=== PATIENT | female | born 1970 | race Caucasian/White ===

== ENCOUNTER 2017-07-10 09:51 | Observation (INO) ==
[2017-07-10 11:04] LABS: BUN/Creatinine Ratio 13 (6-26); Blood Urea Nitrogen 12 mg/dL (6-20); Calcium 8.4 mg/dL (8.6-10.3); Carbon Dioxide 21 mEq/L (23-29); Chloride 110 mEq/L (98-107); Glucose 103 mg/dL (70-105); Osmolality,Calculated 282 (280-300); Sodium 136 mEq/L (136-145); eGFR For African Americans > 60 (> 60); eGFR For Non-African Americans > 60 (> 60)
[2017-07-10 11:22] LABS: Basophils # 0.1 K/mcL (0.0-0.2); Basophils % 0.9 %; Eosinophils # 0.1 K/mcL (0.0-0.6); Eosinophils % 2.3 %; Hematocrit 41.5 % (35.3-44.9); Hemoglobin 13.4 g/dL (11.5-15.4); Immature Granulocytes % 0.3 % (0-4); Immature Platelets 1.3 % (1.1-6.1); Lymphocytes # 1.6 K/mcL (0.6-4.6); Lymphocytes % 28.3 %; Mean Corpuscular HGB Conc 32.3 g/dL (31.6-35.5); Mean Corpuscular Hemoglobin 28.8 pg (28.0-33.3); Mean Corpuscular Volume 89.2 fL (83.0-100.0); Monocytes # 0.4 K/mcL (0.0-1.3); Monocytes % 6.8 %; Neutrophils # 3.5 K/mcL (1.6-8.9); Platelet Count 191 K/mcL (140-400); Red Blood Count 4.65 M/mcL (3.82-4.97); Red Cell Distribution Width 12.8 % (11.5-14.5); Segmented Neutrophils % 61.4 %
[2017-07-10 11:23] LABS: Bilirubin,Urine Negative (Negative); Blood,Urine Negative (Negative); Clarity,Urine Clear (Clear); Color,Urine Yellow (Yellow); Glucose,Urine (UA) Normal (Normal); Ketones,Urine Negative (Negative); Leukocyte Esterase,Urine Trace (Negative); Nitrite,Urine Negative (Negative); PH,Urine 6.5 pH Units (5.0-8.0); Protein,Urine Negative (Neg-Trace); Specific Gravity,Urine 1.007 (1.010-1.025); Urobilinogen,Urine Normal (Normal)
[2017-07-10 11:24] LABS: Bacteria,Urine None Seen per hpf (None-Few); Squamous Epithelial Cell,Urine Many per lpf (None-Few); WBC,Urine 0-3 per hpf (0-3)
[2017-07-10] MEDS ORDERED: Aspirin 81 MG TAB.CHEW PO STA (11:25)
[2017-07-10 11:41] LABS: INR 1.1; Prothrombin Time 11.4 Seconds (9.4-12.1)
[2017-07-10 11:43] LABS: Activated Partial Thrombo Time 24.8 Seconds (26.0-36.0)
--- NOTE | 2017-07-10 14:17 | Emergency Department Note ---
Disposition Clinical Impression: Dizziness, Ataxia, Facial droop Disposition: Admitted As Inpatient Condition: Fair Referrals: Lakesha Huerta MD [Primary Care Provider] - Time of Disposition: 14:51 General Adult HPI - General Chief complaint: ED Dizziness Stated complaint: Fall/dizzy/blurred vision Time Seen by Provider: 07/10/17 10:29 Source: patient, other Mode of arrival: ambulatory Limitations: no limitations Nursing Notes Reviewed: Yes Vital Signs Reviewed: Yes - History of Present Illness HPI Narrative: Patient presents emergency room from home for evaluation of dizziness and ataxia. Patient woke up from sleep of 5:45 in the morning and had difficulty walking on a home and recovered daughter. She felt dizzy and said to go back to bed. She went back to bed and woke up at approximately 9:00 and had difficulty walking across her house to the ER. She got into her yard where she is waiting for her friend pick her up to bring her to the hospital and she felt lightheaded and dizzy and fell over to the side. Denies any other trauma or injuries at this point. Does have a history of blood clots but is currently on a blood thinners. No other symptoms or issues prior to events. Onset (ago): Just [employer] Radiation: non-radiation Pain Severity: mild Pain Scale: 3 Improves with: nothing Worsens with: nothing Associated symptoms: Reports: denies other symptoms Treatments Prior to Arrival: none - Related Data Home Medications Medication Instructions Recorded Confirmed Aspirin 81 mg PO DAILY 12/10/15 07/10/17 Biotin [Marquis Biotin] 10,000 mcg PO DAILY 12/10/15 07/10/17 Calcium Carbonate/Vitamin D3 1 tab PO DAILY 12/10/15 07/10/17 [Calcium 600 + Vit D Softgel] Celecoxib [Celebrex] 200 mg PO DAILY 12/10/15 07/10/17 Cholecalciferol (Vitamin D3) 1,000 unit PO DAILY 12/10/15 07/10/17 [Vitamin D3] Cyanocobalamin (Vitamin B-12) 500 mcg PO DAILY 12/10/15 07/10/17 [Vitamin B-12] Doxepin HCl 10 mg PO TID 12/10/15 07/10/17 Metoprolol [Lopressor] 25 mg PO BID 12/10/15 07/10/17 Multivitamin [Multivitamins] 1 tab PO DAILY 12/10/15 07/10/17 Topiramate [Topamax] 150 mg PO DAILY 12/10/15 07/10/17 clonazePAM [Clonazepam] 1 mg PO TID PRN 12/10/15 07/10/17 lamoTRIgine [Lamotrigine] 200 mg PO BID 12/10/15 07/10/17 Cholecalciferol (Vitamin D3) 50,000 unit PO QWEEK 07/10/17 07/10/17 [Vitamin D] HydrOXYzine 10 mg PO BID PRN 07/10/17 07/10/17 Previous Rx's Medication Instructions Recorded Ondansetron ODT [Zofran ODT] 4 mg SL Q8HR #20 tab.rapdis 07/03/17 Tamsulosin [Flomax] 0.4 mg PO DAILY #14 cap.er.24h 07/03/17 Allergies Allergy/AdvReac Type Severity Reaction Status Date / Time No Known Allergies Allergy Verified 07/10/17 09:59 All systems ED: reviewed and negative except as stated. Review of Systems: As Per HPI Constitutional: Denies: fever, chills, weakness Eyes: Reports: vision change. Denies: eye pain, eye discharge Cardiovascular: Denies: chest pain, palpitations, dyspnea on exertion, orthopnea , edema Respiratory: Denies: dyspnea, wheezes, hemoptysis Gastrointestinal: Denies: abdominal pain, nausea, vomiting, diarrhea Musculoskeletal: Denies: back pain, neck pain Integumentary: Denies: rash Neurological: Reports: abnormal gait, vertigo. Denies: headache, weakness, numbness, paresthesias, confusion Psychiatric: Denies: anxiety Past Medical History - Past Medical History Attestation: Yes The following information was validated with the patient. Source: patient Medical history: Reports: DVT, kidney stones, pulmonary embolus Surgical history: Reports: appendectomy, , cholecystectomy, herniorrhaphy, ureteral stent Psychiatric history: Reports: anxiety, bipolar - Social History Smoking Status: Light tobacco smoker Smokeless Tobacco Status: No Alcohol use: Reports: rarely Drug use: Reports: none Physical Exam - General Limitations: no limitations General appearance: alert, in no apparent distress - Head Head exam: atraumatic, normocephalic, normal inspection - Eye Eye exam: Present: normal appearance, PERRL, EOMI. Absent: scleral icterus, conjunctival injection, nystagmus - ENT ENT exam: normal exam, normal oropharynx, mucous membranes moist - Neck Neck exam: Present: normal inspection, full ROM, trachea midline. Absent: tenderness, meningismus - Chest Chest inspection: Present: normal inspection, symmetric chest wall rise. Absent : tenderness - Respiratory Respiratory exam: Present: normal lung sounds bilaterally - Cardiovascular Cardiovascular exam: Present: regular rate, normal rhythm, normal heart sounds - Abdominal Exam Abdominal exam: Present: soft, Non-Tender, normal bowel sounds. Absent: tenderness, distention, guarding, rebound, rigidity, Dasilva's sign, Rovsing's sign, tenderness at McBurney's Point - Extremities Exam Extremities exam: Present: normal inspection, full ROM, normal capillary refill. Absent: tenderness - Back Exam Back exam: Present: normal inspection - Neurological Exam Neurological exam: Present: alert, oriented X3, CN II-XII intact - Skin Skin exam: Present: warm, dry, intact, normal color Course Course Narrative: Patient seen and examined at the time of arrival to my shift. Patient presented to the emergency room at 0945 hours. I presented to my shift at 1100 hours. Patient was triaged as dizziness along with ataxia. Patient has no specific stroke history. Vital signs reviewed and are stable. Patient is unable to be evaluated prior to my arrival secondary to critically ill patient in the department. On my presentation to the bedside and evaluation of the patient she has what appears to be central vertigo or dizziness at this time. She has no specific lateralizing nystagmus of pupillary exam. Pupils are equal round reactive and ocular muscles are intact. She was describing blurry vision bilaterally but no diplopia. Denies a clear she still feels the room spinning and unsteady presentation. It is not exacerbated or changed by position where she lying a rotating the head. She also has a slight left-sided facial droop. She has a slight ataxia in the left upper extremity with finger to nose testing. Patient otherwise has no other acute neurologic deficits based on my examination. A lengthy discussion was had with her at this time about the process and progress of his symptoms. Patient went to bed at approximately 2 AM this morning. She woke at 5:45 in the morning with these symptoms and had difficulty walking down her hallway. Patient went back to bed. She suffered another several hours. Woke up with the same symptoms. She called her friend and decided to come to the emergency room. She presented here at 0945 hours. Patient was evaluated at 1100 hours by myself. I contacted the neurologist as well as [facility] neurology department immediately on presentation considering the patient was well outside the timeframe for TPA but is a consideration for possible other procedures. Patient has what appears to be cerebellar dysfunction at this point secondary to the dizziness and ataxia. Both the neurologist. Dr. mc and the neurologist at [facility] Dr. camilo and I reviewed the case and they both recommended symptomatic treatment with aspirin MRIs of the head and neck and definitive management. Patient has otherwise been hemodynamically stable. NIH stroke scale is approximately 83 at this time. Patient will be admitted once this is worked up and completed her definitive management. No other concerns or issues noted. Physical exam is otherwise unremarkable except for strokelike symptoms. Lungs are clear heart is regular. Patient understands my concerns and issues and is comfortable with the projected plan at this time. - Reevaluation(s) Reevaluation #1: MRIs are negative for acute signs of ischemic infarct. Patient will be admitted at this time for symptomatic control. Patient needs further evaluation for strokelike symptoms. Meclizine to be given here in the emergency room. Otherwise no other acute pathology noted at this point. Patient is stable and in no apparent distress at this point. Hospice was contacted for admission. Dr. manning and I reviewed the patient's presentation symptoms no other concerns or issues. Patient will be admitted at this time Time: 14:48 Vital Signs Temperature 98.4 F 07/10/17 09:55 Pulse Rate 70 07/10/17 09:55 Respiratory Rate 18 07/10/17 09:55 Blood Pressure 118/82 07/10/17 09:55 O2 Sat by Pulse Oximetry 100 07/10/17 09:55 Temperature 98.4 F 07/10/17 09:55 Pulse Rate 70 07/10/17 09:55 Respiratory Rate 18 07/10/17 09:55 Blood Pressure 118/82 07/10/17 09:55 O2 Sat by Pulse Oximetry 100 07/10/17 09:55 Oxygen Delivery Oxygen Delivery Room Air Medical Decision Making - MDM Narrative Medical decision making narrative: Dizziness, left upper extremity ataxia, left-sided facial droop - Medical Records Medical records reviewed: Yes I reviewed the patient's medical records. - Lab Data Lab results reviewed: Yes I reviewed the patient's lab results. Result diagrams: 07/10/17 10:41 07/10/17 10:41 Lab Results 07/10/17 07/10/17 07/10/17 Range/Units 10:41 10:41 10:41 WBC 5.7 (4.3-11.1) K/mcL RBC 4.65 (3.82-4.97) M/mcL Hgb 13.4 (11.5-15.4) g/dL Hct 41.5 (35.3-44.9) % MCV 89.2 (83.0-100.0) fL MCH 28.8 (28.0-33.3) pg MCHC 32.3 (31.6-35.5) g/dL RDW 12.8 (11.5-14.5) % Plt Count 191 (140-400) K/mcL MPV 9.0 L (9.4-12.4) fL Immature Gran % 0.3 (0-4) % Seg Neutrophils % 61.4 % Lymphocytes % 28.3 % Monocytes % 6.8 % Eosinophils % 2.3 % Basophils % 0.9 % Neutrophils # 3.5 (1.6-8.9) K/mcL Lymphocytes # 1.6 (0.6-4.6) K/mcL Monocytes # 0.4 (0.0-1.3) K/mcL Eosinophils # 0.1 (0.0-0.6) K/mcL Basophils # 0.1 (0.0-0.2) K/mcL Immature Plt Fraction 1.3 (1.1-6.1) % PT (9.4-12.1) Seconds INR APTT (26.0-36.0) Seconds Sodium 136 (136-145) mEq/L Potassium 4.0 (3.5-5.1) mEq/L Chloride 110 H (98-107) mEq/L Carbon Dioxide 21 L (23-29) mEq/L BUN 12 (6-20) mg/dL Creatinine 0.91 (0.60-1.20) mg/dL Est GFR ( Amer) > 60 (> 60) Est GFR (Non-Af Amer) > 60 (> 60) BUN/Creatinine Ratio 13 (6-26) Glucose 103 (70-105) mg/dL Calculated Osmolality 282 (280-300) Calcium 8.4 L (8.6-10.3) mg/dL Troponin I < 0.03 (< 0.04) ng/mL Urine Color (Yellow) Urine Clarity (Clear) Urine pH (5.0-8.0) pH Units Ur Specific [place] (1.010-1.025) Urine Protein (Neg-Trace) mg/dL Urine Glucose (UA) (Normal) mg/dL Urine Ketones (Negative) mg/dL Urine Blood (Negative) Urine Nitrite (Negative) Urine Bilirubin (Negative) Urine Urobilinogen (Normal) mg/dL Ur Leukocyte Esterase (Negative) Urine Microscopic RBC (0-3) per hpf Urine Microscopic WBC (0-3) per hpf Ur Squamous Epith Cells (None-Few) per lpf Urine Bacteria (None-Few) per hpf Ur Culture Indicated? (NO) Urine Test (Negative) 07/10/17 07/10/17 07/10/17 Range/Units 11:00 11:00 11:25 WBC (4.3-11.1) K/mcL RBC (3.82-4.97) M/mcL Hgb (11.5-15.4) g/dL Hct (35.3-44.9) % MCV (83.0-100.0) fL MCH (28.0-33.3) pg MCHC (31.6-35.5) g/dL RDW (11.5-14.5) % Plt Count (140-400) K/mcL MPV (9.4-12.4) fL Immature Gran % (0-4) % Seg Neutrophils % % Lymphocytes % % Monocytes % % Eosinophils % % Basophils % % Neutrophils # (1.6-8.9) K/mcL Lymphocytes # (0.6-4.6) K/mcL Monocytes # (0.0-1.3) K/mcL Eosinophils # (0.0-0.6) K/mcL Basophils # (0.0-0.2) K/mcL Immature Plt Fraction (1.1-6.1) % PT 11.4 (9.4-12.1) Seconds INR 1.1 APTT 24.8 L (26.0-36.0) Seconds Sodium (136-145) mEq/L Potassium (3.5-5.1) mEq/L Chloride (98-107) mEq/L Carbon Dioxide (23-29) mEq/L BUN (6-20) mg/dL Creatinine (0.60-1.20) mg/dL Est GFR ( Amer) (> 60) Est GFR (Non-Af Amer) (> 60) BUN/Creatinine Ratio (6-26) Glucose (70-105) mg/dL Calculated Osmolality (280-300) Calcium (8.6-10.3) mg/dL Troponin I (< 0.04) ng/mL Urine Color Yellow (Yellow) Urine Clarity Clear (Clear) Urine pH 6.5 (5.0-8.0) pH Units Ur Specific [place] 1.007 L (1.010-1.025) Urine Protein Negative (Neg-Trace) mg/dL Urine Glucose (UA) Normal (Normal) mg/dL Urine Ketones Negative (Negative) mg/dL Urine Blood Negative (Negative) Urine Nitrite Negative (Negative) Urine Bilirubin Negative (Negative) Urine Urobilinogen Normal (Normal) mg/dL Ur Leukocyte Esterase Trace H (Negative) Urine Microscopic RBC 3-5 H (0-3) per hpf Urine Microscopic WBC 0-3 (0-3) per hpf Ur Squamous Epith Cells Many H (None-Few) per lpf Urine Bacteria None Seen (None-Few) per hpf Ur Culture Indicated? NO. (NO) Urine Test Negative (Negative) - Radiology Data Radiology results reviewed: Yes I reviewed the patient's radiology results. CT of the head as well as MRI of the head and neck are negative for acute intracranial pathology noted signs of ischemic stroke - EKG Data EKG #1 EKG results narrative: Sinus rhythm. Ventricular 65. VT interval 184. QRS duration of 88. QTC of 411. Enemas appear to be within normal limits. No acute signs of WPW or Brugada syndrome. T-wave inversion noted in lead 3. Critical Care Time Critical Care Time: Yes Total Critical Care Time: 35 Attestation: Critical care performed: Time is exclusive of separately billable procedures. Time includes: direct patient care, patient reassessment, coordination of patient care, interpretation of data (laboratory data, radiology data, and respiratory data), review of patient's medical records, medical consultation and documentation of patient care. Procedures included in critical care time: Procedures excluded from critical care time:
[2017-07-10] MEDS ORDERED: Naloxone 0.4 MG/ML INJ IVP PRN (15:04)
[2017-07-10] MEDS ORDERED: Acetaminophen 325 MG TABLET PO PRN (15:19)
[2017-07-10] MEDS ORDERED: clonazePAM 1 MG TABLET PO PRN (15:27)
--- NOTE | 2017-07-10 15:43 | Internal Med History&Physical ---
<Krissy Loo - Last Filed: 07/10/17 16:03> Date of Encounter: 07/10/17 Time of Encounter: 15:36 Assessment and Plan (1) Vertigo Current visit: Yes Status: Suspected 1 patient awakened this a.m. and began to experience dizziness, she was unable to walk and was unsteady on her feet she follows if she was going to fall down and actually did fall however she did not sustain any injuries. She denies any recent head trauma or illness, CT MRI MRA of head and neck were all negative for any stroke or hemorrhage. neuro consulted per ER physician She did have some slight vertigo nystagmus with head movement which resolved quickly We will give meclizine as needed 2 give gentle IV fluids 3 fall precautions 4 consult ENT-did speak with Dr. Elizondo who will see patient 5 neuro checks (2) Bipolar 1 disorder Current visit: No Status: Chronic Patient has history of bipolar with anxiety presently appears to be stable continue with home medications (3) Hx of deep venous thrombosis Current visit: No Status: Chronic 1 patient does have a history of DVT several years ago post operatively. No recent history [address] on Lovenox subcutaneous DVT prophylaxis Internal Medicine - H&P: HPI Chief complaint: Ataxia dizziness Admitted From: Emergency Dept Plans for Post Hospital Care: Home History of present illness: Ms. Mccormick is a 47 year old female past medical history of DVT kidney stones bipolar disorder. According to the patient she has been in her usual state of health, she was treated for kidney stones several weeks ago and has been doing well. This a.m. she awoke and she felt dizzy and she did not think anything about it and went back to bed. A couple hours later she try to get up again felt dizzy and was having difficulty ambulating felt as if she was going to fall. She had a cup of matilde and began to experience a headache. Again she attempted to ambulate and felt unsteady as if she was going to fall. She called a friend to transport her to the hospital and as she was waiting outside she fell down she denies striking her head or any loss of consciousness. She was brought to the ER for evaluation. In the ER lab work was obtained which was unremarkable CT of head was negative hemorrhage intracranial abnormality MRI MRA head and neck were all negative for any stroke or hemorrhage. She was admitted for further workup and evaluation. Presently patient is alert and appropriate. Neuro exam intact however she was unable to ambulate she is very unsteady on her feet. She did complain of frontal headache which she described as throbbing with associated symptoms of photophobia. She seemed to be stable at this time I did review this case with who agrees with plan Past Med Surg Social Fam HX - Past Medical History Medical history: DVT, kidney stones, pulmonary embolus Psychiatric history: anxiety, bipolar - Past Surgical History Surgical History: appendectomy, , cholecystectomy, herniorrhaphy, ureteral stent - Social History Smoking Status: Light tobacco smoker Smokeless Tobacco Status: No Alcohol use: rarely Drug use: none - Additional Family History Additional family history: reviewed and noncontributory Internal Medicine - H&P: Meds Aspirin 81 mg PO DAILY 12/10/15 [History] Biotin [Marquis Biotin] 10,000 mcg PO DAILY 12/10/15 [History] Calcium Carbonate/Vitamin D3 [Calcium 600 + Vit D Softgel] 1 tab PO DAILY [History] Celecoxib [Celebrex] 200 mg PO DAILY 12/10/15 [History] Cholecalciferol (Vitamin D3) [Vitamin D3] 1,000 unit PO DAILY 12/10/15 [History] Cyanocobalamin (Vitamin B-12) [Vitamin B-12] 500 mcg PO DAILY 12/10/15 [History] Doxepin HCl 10 mg PO TID 12/10/15 [History] Metoprolol [Lopressor] 25 mg PO BID 12/10/15 [History] Multivitamin [Multivitamins] 1 tab PO DAILY 12/10/15 [History] Topiramate [Topamax] 150 mg PO DAILY 12/10/15 [History] clonazePAM [Clonazepam] 1 mg PO TID PRN 12/10/15 [History] lamoTRIgine [Lamotrigine] 200 mg PO BID 12/10/15 [History] Ondansetron ODT [Zofran ODT] 4 mg SL Q8HR #20 tab.rapdis 07/03/17 [Rx] Tamsulosin [Flomax] 0.4 mg PO DAILY #14 cap.er.24h 07/03/17 [Rx] Cholecalciferol (Vitamin D3) [Vitamin D] 50,000 unit PO QWEEK 07/10/17 [History] HydrOXYzine 10 mg PO BID PRN 07/10/17 [History] 3 Allergy/AdvReac Type Severity Reaction Status Date / Time No Known Allergies Allergy Verified 07/10/17 09:59 All Systems PM: A 10-system review of systems was performed and is negative for pertinent findings except as documented above in the HPI. - Constitutional Constitutional: no chills, no fever(s), no night sweats - EENT Eyes: no change in vision, no discharge, no pain, no photophobia Nose, mouth and throat: no dysphagia, no nasal discharge, no neck pain, no sore throat - Cardiovascular Cardiovascular ROS IM: no chest pain, no diaphoresis, no dyspnea, no lightheadedness, no palpitations, no syncope - Respiratory Respiratory: no cough, no dyspnea, no wheezing, no excessive phlegm production - Gastrointestinal Gastrointestinal: no abdominal pain, no diarrhea, no hematemesis, no hematochezia, no melena, no nausea, no vomiting - Genitourinary Genitourinary: no change in urinary stream, no dysuria, no flank pain, no hematuria - Musculoskeletal Musculoskeletal ROS IM: no numbness, no tingling - Neurological Neurological ROS: dizziness, headache(s) - Hematologic/Lymphatic Hematologic/Lymphatic: no easy bruising - Constitutional Vitals: Temp Pulse Resp BP Pulse Ox 98.4 F 67 16 104/75 99 07/10/17 09:55 07/10/17 14:25 07/10/17 14:25 07/10/17 14:25 07/10/17 14:25 General appearance: Present: A&O X 3 - Head Head exam: Present: atraumatic, normocephalic - Eye Eye exam: Present: PERRL, conjuntiva pink, sclera anicteric Pupils: Present: PERRL - Neck Neck exam general surgery: Present: supple, trachea midline. Absent: lymphadenopathy - Respiratory Respiratory exam: Present: CTAB. Absent: accessory muscle use, rales, rhonchi, wheezes - Cardiovascular Cardiovascular exam: Present: RRR, +S1, +S2. Absent: diastolic murmur, gallop, rubs, systolic murmur - GI/Abdominal GI/Abdominal exam: Present: normal bowel sounds, soft, no peritoneal signs. Absent: distended, tenderness - Extremities Exam Extremities exam: Present: warm, radial pulses palpable and symmetrical. Absent : calf tenderness, cyanotic, pedal edema - Neurological Exam Neurological exam: Present: CN II-XII intact, oriented X3, no focal deficits. Absent: pronater drift, facial droop, speech deficit - Expanded Neurological Exam Patient oriented to: Present: person, place, time Cranial Nerves: EOM's intact PM: Normal, nystagmus PM: Abnormal Left, Abnormal Right (slight), tongue deviation PM: Normal Cerebellar function: finger to nose: Normal, heel to bird: Normal, Romberg: Normal Neuro motor strength exam: LUE: 5, RUE: 5, LLE: 5, RLE: 5 Coma Scale Eye Opening: Spontaneous Coma Scale Motor Response: Obeys Commands Coma Scale Verbal Response: Oriented Coma Scale Total: 15 - Skin Skin exam: Present: dry, intact Internal Med - H&P Results - Labs CBC & Chem 7: 07/10/17 10:41 07/10/17 10:41 - EKG Data EKG shows normal: sinus rhythm - Diagnostic Studies Other Images Additional comments: Brain MRI 07/10/17 11:14 IMPRESSION: No acute abnormality. D/ / Hugh Campos MD / Hugh Campos MD Interpreting Provider: Hugh Cmapos MD Head CT 07/10/17 11:14 IMPRESSION: No acute intracranial abnormality. Unchanged chronic partial opacification of the right mastoid air cells. No middle ear effusion or osseous destruction. D/ / Dario Caceres / Dario Caceres Interpreting Provider: Dario Caceres Neck MRA 07/10/17 11:14 IMPRESSION: No flow-limiting stenosis of the cervical, carotid or vertebral arteries. No intracranial flow-limiting stenosis or aneurysm. D/ / 07/10/2017 14:21:35 Jared Banda MD / kumar Interpreting Provider: Jared Banda MD Head MRA 07/10/17 11:18 IMPRESSION: No flow-limiting stenosis of the cervical, carotid or vertebral arteries. No intracranial flow-limiting stenosis or aneurysm. D/ / 07/10/2017 14:21:35 Jared Banda MD / kumar Interpreting Provider: Jared Banda MD <Devon Steward T - Last Filed: 07/10/17 16:35> Date of Encounter: 07/10/17 Internal Medicine - H&P: HPI History of present illness: Ms. Mccormick is a 47 year old female All Systems PM: A 10-system review of systems was performed and is negative for pertinent findings except as documented above in the HPI. - Constitutional Vitals: Temp Pulse Resp BP Pulse Ox 97.7 F 59 14 106/68 98 07/10/17 16:20 07/10/17 16:20 07/10/17 16:20 07/10/17 16:20 07/10/17 16:20 Internal Med - H&P Results - Labs CBC & Chem 7: 07/10/17 10:41 07/10/17 10:41 - Attending Attestation Seen and reviewed Severe vertigo, unable to stand or sit up Stroke work up negative Agree with ENT eval and meclizine, no evidence of labyrynthitis or vestibular neuritis Resume home meds Agree with plan as in CATHERINE Loo' documentation
[2017-07-10] MEDS: 0.9 % Sodium Chloride 1,000 ML IVC SCH (16:46)
--- NOTE | 2017-07-10 17:36 | ENT - Consult Note ---
<Shannan Dean - Last Filed: 07/11/17 16:15> Date of Encounter: 07/11/17 Time of Encounter: 17:34 Assessment and Plan (1) Dizziness Current Visit: Yes Status: Acute Seen and examined at bedside today. Flora-Hallpike completed and negative at this time. Patient does not report symptoms Consistent with true vertigo. She does report a history of migraines and tension headaches, and states that she feels that her symptoms are similar to those experienced with tension headaches she has had in the past. Her blood pressures have also been trending in the low 100s systolically, and she has been experiencing episodes of tachycardia. Patient reports normal blood pressures at home with systolic usually running in the 120s. Would recommend evaluation for orthostatic blood pressure. No further ENT evaluation is warranted at this time. ENT is signing off. History of Present Illness Consult date: 07/10/17 Reason for ENT Consult: vertigo History of present illness: Patient is a 47-year-old female that presented to the ER today post fall at her home. She reports her symptoms of dizziness and lightheadedness started this morning when she awoke and was rising out of bed. She described her symptom of "dizziness" as lightheadedness and denies a sensation of spinning. She states her symptoms subsided for a short amount of time and returned when she was doing laundry after she stood up quickly. At that time she again became lightheaded and her vision started to become dark and blurry. She stated that she fell when she attempted to ambulate. She states she had began getting a headache earlier in the day with associated blurred vision that she describes as "out of focus," photophobia, and nausea. She denies resolution of her symptoms with focus to one object. Patient denies symptom exacerbation with head movement in either direction, denies any recent illness, or head trauma. Patient denies any history of vertigo. She does report history of migraines and tension headaches. Past Med Surg Social Fam HX - Past Medical History Medical history: DVT, kidney stones, pulmonary embolus Psychiatric history: anxiety, bipolar - Past Surgical History Surgical History: appendectomy, , cholecystectomy, herniorrhaphy, ureteral stent - Social History Smoking Status: Light tobacco smoker Smokeless Tobacco Status: No Alcohol use: rarely Drug use: none Medications and Allergies Aspirin 81 mg PO DAILY 12/10/15 [History] Biotin [Marquis Biotin] 10,000 mcg PO DAILY 12/10/15 [History] Calcium Carbonate/Vitamin D3 [Calcium 600 + Vit D Softgel] 1 tab PO DAILY [History] Celecoxib [Celebrex] 200 mg PO DAILY 12/10/15 [History] Cholecalciferol (Vitamin D3) [Vitamin D3] 1,000 unit PO DAILY 12/10/15 [History] Cyanocobalamin (Vitamin B-12) [Vitamin B-12] 500 mcg PO DAILY 12/10/15 [History] Doxepin HCl 10 mg PO TID 12/10/15 [History] Metoprolol [Lopressor] 25 mg PO BID 12/10/15 [History] Multivitamin [Multivitamins] 1 tab PO DAILY 12/10/15 [History] Topiramate [Topamax] 150 mg PO DAILY 12/10/15 [History] clonazePAM [Clonazepam] 1 mg PO TID PRN 12/10/15 [History] lamoTRIgine [Lamotrigine] 200 mg PO BID 12/10/15 [History] Ondansetron ODT [Zofran ODT] 4 mg SL Q8HR #20 tab.rapdis 07/03/17 [Rx] Tamsulosin [Flomax] 0.4 mg PO DAILY #14 cap.er.24h 07/03/17 [Rx] Cholecalciferol (Vitamin D3) [Vitamin D] 50,000 unit PO QWEEK 07/10/17 [History] HydrOXYzine 10 mg PO BID PRN 07/10/17 [History] 3 Allergy/AdvReac Type Severity Reaction Status Date / Time No Known Allergies Allergy Verified 07/10/17 09:59 ENT - ROS - Constitutional Constitutional ROS: as per HPI, headache(s) - EENT Nose, mouth and throat: dizziness, headache(s) ENT Exam Initial Vital Signs Temp Pulse Resp BP Pulse Ox 98.4 F 70 18 118/82 100 07/10/17 09:55 07/10/17 09:55 07/10/17 09:55 07/10/17 09:55 07/10/17 09:55 - General physical appearance well developed, well nourished, no distress - Eyes PERRL, normal ocular movement - ENT normal pinna, normal nares, normal mucosa, no hearing loss, no congestion, CN 2- 12 grossly intact, Other (Normal TM's bilaterally. Teeth in good repair tonsils 1+. Normal oral mucosa and oropharynx. Septum grossly midline.) - Neck no masses, trachea midline, no lymphadectomy. negative: deviated trachea, diffuse goiter, limited ROM - Respiratory normal expansion, normal respiratory effort - Neurologic CN 2-12 grossly intact, other (Misti-Hallpike negative) Exam Initial Vital Signs Temp Pulse Resp BP Pulse Ox 98.4 F 70 18 118/82 100 07/10/17 09:55 07/10/17 09:55 07/10/17 09:55 07/10/17 09:55 07/10/17 09:55 Results - Labs 07/11/17 06:35 07/11/17 06:35 Abnormal lab results MPV 9.0 fL (9.4-12.4) L 07/10/17 10:41 APTT 24.8 Seconds (26.0-36.0) L 07/10/17 11:25 Chloride 110 mEq/L (98-107) H 07/10/17 10:41 Carbon Dioxide 21 mEq/L (23-29) L 07/10/17 10:41 Calcium 8.4 mg/dL (8.6-10.3) L 07/10/17 10:41 Ur Specific [place] 1.007 (1.010-1.025) L 07/10/17 11:00 Ur Leukocyte Esterase Trace (Negative) H 07/10/17 11:00 Urine Microscopic RBC 3-5 per hpf (0-3) H 07/10/17 11:00 Ur Squamous Epith Cells Many per lpf (None-Few) H 07/10/17 11:00 All other labs normal. Consult Discharge Plan - Plan Referrals: Lakesha Huerta MD [Primary Care Provider] - <Whitney Ricketts - Last Filed: 07/11/17 16:29> Date of Encounter: 07/11/17 ENT Exam Initial Vital Signs Temp Pulse Resp BP Pulse Ox 98.4 F 70 18 118/82 100 07/10/17 09:55 07/10/17 09:55 07/10/17 09:55 07/10/17 09:55 07/10/17 09:55 Exam Initial Vital Signs Temp Pulse Resp BP Pulse Ox 98.4 F 70 18 118/82 100 07/10/17 09:55 07/10/17 09:55 07/10/17 09:55 07/10/17 09:55 07/10/17 09:55 Results - Labs 07/11/17 06:35 07/11/17 06:35 Abnormal lab results MPV 9.1 fL (9.4-12.4) L 07/11/17 06:35 APTT 24.8 Seconds (26.0-36.0) L 07/10/17 11:25 Chloride 116 mEq/L (98-107) H 07/11/17 06:35 Carbon Dioxide 20 mEq/L (23-29) L 07/11/17 06:35 POC Glucose 235 (58-89) H 07/11/17 09:21 Calcium 7.9 mg/dL (8.6-10.3) L 07/11/17 06:35 Ur Specific [place] 1.007 (1.010-1.025) L 07/10/17 11:00 Ur Leukocyte Esterase Trace (Negative) H 07/10/17 11:00 Urine Microscopic RBC 3-5 per hpf (0-3) H 07/10/17 11:00 Ur Squamous Epith Cells Many per lpf (None-Few) H 07/10/17 11:00 Diabetes panel 07/11/17 Range/Units 06:35 Sodium 140 (136-145) mEq/L Potassium 3.9 (3.5-5.1) mEq/L Chloride 116 H (98-107) mEq/L Carbon Dioxide 20 L (23-29) mEq/L BUN 11 (6-20) mg/dL Creatinine 0.71 (0.60-1.20) mg/dL Glucose 91 (70-105) mg/dL Calcium 7.9 L (8.6-10.3) mg/dL Calcium panel 07/11/17 Range/Units 06:35 Calcium 7.9 L (8.6-10.3) mg/dL Pituitary panel 07/11/17 Range/Units 06:35 Sodium 140 (136-145) mEq/L Potassium 3.9 (3.5-5.1) mEq/L Chloride 116 H (98-107) mEq/L Carbon Dioxide 20 L (23-29) mEq/L BUN 11 (6-20) mg/dL Creatinine 0.71 (0.60-1.20) mg/dL Glucose 91 (70-105) mg/dL Calcium 7.9 L (8.6-10.3) mg/dL Adrenal panel 07/11/17 Range/Units 06:35 Sodium 140 (136-145) mEq/L Potassium 3.9 (3.5-5.1) mEq/L Chloride 116 H (98-107) mEq/L Carbon Dioxide 20 L (23-29) mEq/L BUN 11 (6-20) mg/dL Creatinine 0.71 (0.60-1.20) mg/dL Glucose 91 (70-105) mg/dL Calcium 7.9 L (8.6-10.3) mg/dL All other labs normal. - Attending Attestation Patient was seen and examined at the bedside with the GENERATOR TECHNICIAN. Patient does not exhibit true vertigo by history. Patient complains of lighheadedness and pre- syncope. Patient with associated drop in bp compared to her baseline as well as episodes of tachycardia here in the hospital. Recommend optimization of her fluid status with gentle rehydration and further monitoring of blood pressure possible orthostatics if symptoms continue. Patient does not appear to have symptoms of vestibular orgin. ENT to sign off.
[2017-07-10] MEDS: lamoTRIgine 100 MG TABLET PO SCH (20:29)
[2017-07-10] MEDS: (Doxepin Hcl [Doxepin Hcl] 10 MG) PO SCH (20:30)
[2017-07-10] MEDS: Topiramate 100 MG TABLET PO SCH (20:42)
[2017-07-11 06:53] LABS: Basophils % 0.8 %; Eosinophils # 0.1 K/mcL (0.0-0.6); Eosinophils % 1.9 %; Hematocrit 38.3 % (35.3-44.9); Hemoglobin 12.6 g/dL (11.5-15.4); Immature Granulocytes % 0.2 % (0-4); Lymphocytes # 1.7 K/mcL (0.6-4.6); Lymphocytes % 33.6 %; Mean Corpuscular HGB Conc 32.9 g/dL (31.6-35.5); Mean Corpuscular Hemoglobin 28.7 pg (28.0-33.3); Mean Corpuscular Volume 87.2 fL (83.0-100.0); Mean Platelet Volume 9.1 fL (9.4-12.4); Monocytes # 0.4 K/mcL (0.0-1.3); Monocytes % 7.8 %; Neutrophils # 2.9 K/mcL (1.6-8.9); Platelet Count 150 K/mcL (140-400); Red Blood Count 4.39 M/mcL (3.82-4.97); Red Cell Distribution Width 12.8 % (11.5-14.5); Segmented Neutrophils % 55.7 %
[2017-07-11 07:19] LABS: BUN/Creatinine Ratio 15 (6-26); Blood Urea Nitrogen 11 mg/dL (6-20); Calcium 7.9 mg/dL (8.6-10.3); Carbon Dioxide 20 mEq/L (23-29); Chloride 116 mEq/L (98-107); Glucose 91 mg/dL (70-105); Magnesium 1.8 mg/dL (1.6-2.6); Osmolality,Calculated 289 (280-300); Potassium 3.9 mEq/L (3.5-5.1); Sodium 140 mEq/L (136-145); eGFR For African Americans > 60 (> 60); eGFR For Non-African Americans > 60 (> 60)
[2017-07-11] MEDS: (Doxepin Hcl [Doxepin Hcl] 10 MG) PO SCH ×3 (07:35→21:03)
[2017-07-11] MEDS: (Biotin [Mega Biotin] 10,000 MCG) PO SCH (07:35)
[2017-07-11] MEDS: Multivit/Ca/Min/Fe/FA 1 TAB TABLET PO SCH (07:40)
[2017-07-11] MEDS: lamoTRIgine 100 MG TABLET PO SCH ×2 (07:40→21:02)
[2017-07-11] MEDS: Celecoxib 200 MG CAPSULE PO SCH (07:40)
[2017-07-11] MEDS: Cyanocobalamin (B-12) 1,000 MCG TABLET PO SCH (07:41)
[2017-07-11] MEDS: Aspirin 81 MG TAB.CHEW PO SCH (07:41)
[2017-07-11] MEDS: Cholecalciferol (D-3) 1,000 UNIT TABLET PO SCH (07:41)
[2017-07-11] MEDS: *HR* Enoxaparin 40 MG/0.4 ML SYRINGE SQ SCH (07:41)
--- NOTE | 2017-07-11 08:22 | Electrocardiograph Report ---
[address] [place], [place] [address] Test Date: 2017-07-10 Pat Name: Jesus Mccormick Department: 104 Room: [facility] Gender: F Scada Technician: BENJA : 1970 Requested By: She Romero Order Number: [id number] Reading MD: Aldo Lopez MD Measurements Intervals [place] Rate: 65 P: 26 AK: 184 QRS: 9 QRSD: 88 T: 0 QT: 399 QTc: 411 Interpretive Statements SINUS RHYTHM Electronically Signed On 07-11-2017 8:20:55 EST by Aldo Lopez MD
[2017-07-11] MEDS ORDERED: Topiramate 100 MG TABLET PO SCH (09:00)
--- NOTE | 2017-07-11 09:01 | Neurology - Consult Note ---
Date of Encounter: 07/11/17 Time of Encounter: 07:30 Assessment and Plan (1) Orthostatic dizziness Current Visit: Yes Status: Acute This patient's symptoms were likely related to underlying orthostatic blood pressure she is on beta tere and she has been taking at nighttime likely in the morning she was slightly dehydrated and that made her symptoms worse. Recommended hydration as well as increased oral fluid intake adjustment of her blood pressure medication. If she remains symptomatic perhaps may benefit from evaluation of orthostatic blood pressure 5 minutes apart or may do a tilt table studies later on if indicated. As far as neurology standpoint no evidence of any acute stroke on clinical exam as well as on imaging studies. No evidence of any central dizziness or central causes of the dizziness and particularly no evidence of any posterior circulation infarct. Less likely peripheral or vestibular in nature already been evaluated by ENT follow the recommendations Patient has an history of chronic migraines perhaps may be contributing to her symptoms at this time do not think that she would require any preventive therapy . From neurology standpoint patient could be discharged to home with follow-up with the primary care physician (2) Dizziness Current Visit: Yes Status: Acute (3) Ataxia Current Visit: Yes Status: Acute History of Present Illness HPI: Ms. Mccormick is a 47 year old female with past medical history of DVT, kidney stones, bipolar disorder. admitted with dizziness and lightheadedness along with feeling of passing out, According to the patient when she awoke up felt dizzy and felt she is going to pass out, also had difficulty ambulating felt as if she was going to fall. She had a cup of tea and began to experience a headache. when she attempted to ambulate again felt unsteady as if she was going to fall. later while waiting outside for a friend to bring her to hospital she fell down she denies striking her head or any loss of consciousness. She was brought to the ER for evaluation. In the ER lab work was obtained which was unremarkable CT of head was negative hemorrhage intracranial abnormality MRI MRA head and neck were all negative for any stroke or hemorrhage. She was admitted for further workup and evaluation. . She did complain of frontal headache which she described as throbbing with associated symptoms of photophobia. back to baseline now, seen ENT work up is negative Past Med Surg Social Fam HX - Past Medical History Medical history: DVT, kidney stones, pulmonary embolus Psychiatric history: anxiety, bipolar - Past Surgical History Surgical History: appendectomy, , cholecystectomy, herniorrhaphy, ureteral stent - Social History Smoking Status: Light tobacco smoker Smokeless Tobacco Status: No Alcohol use: rarely Drug use: none Medications and Allergies Aspirin 81 mg PO DAILY 12/10/15 [History] Biotin [Marquis Biotin] 10,000 mcg PO DAILY 12/10/15 [History] Calcium Carbonate/Vitamin D3 [Calcium 600 + Vit D Softgel] 1 tab PO DAILY [History] Celecoxib [Celebrex] 200 mg PO DAILY 12/10/15 [History] Cholecalciferol (Vitamin D3) [Vitamin D3] 1,000 unit PO DAILY 12/10/15 [History] Cyanocobalamin (Vitamin B-12) [Vitamin B-12] 500 mcg PO DAILY 12/10/15 [History] Doxepin HCl 10 mg PO TID 12/10/15 [History] Metoprolol [Lopressor] 25 mg PO BID 12/10/15 [History] Multivitamin [Multivitamins] 1 tab PO DAILY 12/10/15 [History] Topiramate [Topamax] 150 mg PO DAILY 12/10/15 [History] clonazePAM [Clonazepam] 1 mg PO TID PRN 12/10/15 [History] lamoTRIgine [Lamotrigine] 200 mg PO BID 12/10/15 [History] Ondansetron ODT [Zofran ODT] 4 mg SL Q8HR #20 tab.rapdis 07/03/17 [Rx] Tamsulosin [Flomax] 0.4 mg PO DAILY #14 cap.er.24h 07/03/17 [Rx] Cholecalciferol (Vitamin D3) [Vitamin D] 50,000 unit PO QWEEK 07/10/17 [History] HydrOXYzine 10 mg PO BID PRN 07/10/17 [History] 3 Allergy/AdvReac Type Severity Reaction Status Date / Time No Known Allergies Allergy Verified 07/10/17 09:59 All Systems: A 10-system review of systems was performed and is negative for pertinent findings except as documented above in the HPI. Physical Examination - Vital Signs Vital Signs: Initial Vital Signs Temp Pulse Resp BP Pulse Ox 98.4 F 70 18 118/82 100 07/10/17 09:55 07/10/17 09:55 07/10/17 09:55 07/10/17 09:55 07/10/17 09:55 - Constitutional General appearance: comfortable - Neurologic Sensorimotor examination: intact Detailed motor examination: full strength in all major muscle groups Motor examination - right side: 10/20: deltoids, biceps, triceps, wrist flexion, wrist extension, spice mixer, hip flexors, tibialis Anterior, quadriceps, toe extension (EHL), plantarflexion Motor examination - left side: 5: deltoids, biceps, triceps, wrist flexion, wrist extension, hip flexors, spice mixer, quadriceps, tibialis Anterior, toe extension (EHL), plantarflexion Detailed sensory examination: intact Reflex and gait examination: intact Reflexes: Biceps: 1+, Triceps: 1+, Brachioradialis: 1+, Patella: 1+, Achilles: 1 + Mental Status Examination: awake, alert, oriented to person, oriented to place, oriented to time, follows commands appropriately, answers questions appropriately, no agnosia, no aphasia, no aproxia Cranial nerve examination: PERRL, EOMI, visual bone intact, corneal reflexes brisk symmetrically, sensory to face intact, mastication intact, no facial asymmetry is present, no dysarthria, hearing is intact symmetrically, soft palate elevates bilaterally upon phonation, gag reflex intact, flexes SCM and trapezius muscles symmetrically with full power, tongue protrudes midline, no atrophy or facial fasiculations present Cerebellar examination: no dysmetria, performs finger to nose and heel to bird symmetrically without ataxia, no gait ataxia, no truncal ataxia, no difficulty with rapid alternating movements Results - Laboratory Findings CBC and BMP: 07/11/17 06:35 07/11/17 06:35 Abnormal lab findings: Abnormal lab results MPV 9.1 fL (9.4-12.4) L 07/11/17 06:35 APTT 24.8 Seconds (26.0-36.0) L 07/10/17 11:25 Chloride 116 mEq/L (98-107) H 07/11/17 06:35 Carbon Dioxide 20 mEq/L (23-29) L 07/11/17 06:35 Calcium 7.9 mg/dL (8.6-10.3) L 07/11/17 06:35 Ur Specific [place] 1.007 (1.010-1.025) L 07/10/17 11:00 Ur Leukocyte Esterase Trace (Negative) H 07/10/17 11:00 Urine Microscopic RBC 3-5 per hpf (0-3) H 07/10/17 11:00 Ur Squamous Epith Cells Many per lpf (None-Few) H 07/10/17 11:00 - Diagnostic Findings Additional findings: CT scan of the head as well as MRI of the brain MRA of the head and MRA of the neck all were negative for any critical stenosis or any acute or chronic intracranial abnormality Consult Discharge Plan - Plan Referrals: Lakesha Huerta MD [Primary Care Provider] -
[2017-07-11] MEDS: 0.9 % Sodium Chloride 1,000 ML IVC SCH (13:10)
--- NOTE | 2017-07-11 17:40 | Internal Med Progress Note ---
Date of Encounter: 07/11/17 Time of Encounter: 17:39 - Subjective Interval history: Interval changes: She still feels dizzy. No other new acute Orthostatic dizziness Current Visit: Yes Status: Acute This patient's symptoms were likely related to underlying orthostatic blood pressure she is on beta tere and she has been taking at nighttime likely in the morning she was slightly dehydrated and that made her symptoms worse. Flomax was recently started Likely due to orthostasis All imaging studies negative - Constitutional Vitals: Temp Pulse Resp BP Pulse Ox 97.6 F 61 18 90/60 97 07/11/17 15:35 07/11/17 15:35 07/11/17 15:35 07/11/17 15:35 07/11/17 15:35 General appearance: Present: A&O X 3 Internal Medicine: Result - Labs CBC & Chem 7: 07/11/17 06:35 07/11/17 06:35 Labs: Short CBC 07/11/17 Range/Units 06:35 WBC 5.2 (4.3-11.1) K/mcL Hgb 12.6 (11.5-15.4) g/dL Hct 38.3 (35.3-44.9) % Plt Count 150 (140-400) K/mcL Neutrophils # 2.9 (1.6-8.9) K/mcL BMP 07/11/17 06:35 Sodium 140 Potassium 3.9 Chloride 116 H Carbon Dioxide 20 L BUN 11 Creatinine 0.71 Glucose 91 Calcium 7.9 L Cardiac Enzymes 07/10/17 Range/Units 21:57 Troponin I < 0.03 (< 0.04) ng/mL - ABG Interpretation ABG results: PT/INR, D-dimer PT 11.4 Seconds (9.4-12.1) 07/10/17 11:25 Consult Discharge Plan - Plan Referrals: Lakesha Huerta MD [Primary Care Provider] -
[2017-07-11] MEDS: Topiramate 100 MG TABLET PO SCH (21:03)
[2017-07-12] MEDS: (Biotin [Mega Biotin] 10,000 MCG) PO SCH (08:18)
[2017-07-12] MEDS: (Doxepin Hcl [Doxepin Hcl] 10 MG) PO SCH (08:18)
[2017-07-12] MEDS: Cyanocobalamin (B-12) 1,000 MCG TABLET PO SCH (08:21)
[2017-07-12] MEDS: Celecoxib 200 MG CAPSULE PO SCH (08:28)
[2017-07-12] MEDS: Aspirin 81 MG TAB.CHEW PO SCH (08:28)
[2017-07-12] MEDS: lamoTRIgine 100 MG TABLET PO SCH ×2 (08:28→20:39)
[2017-07-12] MEDS: Multivit/Ca/Min/Fe/FA 1 TAB TABLET PO SCH (08:28)
[2017-07-12] MEDS: *HR* Enoxaparin 40 MG/0.4 ML SYRINGE SQ SCH (08:29)
[2017-07-12] MEDS: Cholecalciferol (D-3) 1,000 UNIT TABLET PO SCH ×2 (08:29→20:39)
--- NOTE | 2017-07-12 14:01 | Internal Med Progress Note ---
Date of Encounter: 07/12/17 Time of Encounter: 13:59 - Subjective Interval history: Interval changes: She still feels dizzy. Hypotensive today and Metoprolol and Flomax held Physical exam: See below Orthostatic dizziness Current Visit: Yes Status: Acute This patient's symptoms were likely related to underlying orthostatic blood pressure she is on beta tere and she has been taking at nighttime likely in the morning she was slightly dehydrated and that made her symptoms worse. Flomax was recently started Likely due to orthostasis All imaging studies negative All neuroimaging negative. Neurology and ENT and do not f she has Vertigo, but agree this is orthoas Continue IVFs and continue holding Flomax and BB Bipolar 1 disorder Current visit: No Status: Chronic Patient has history of bipolar with anxiety presently appears to be stable continue with home medications - Constitutional Vitals: Temp Pulse Resp BP Pulse Ox 97.8 F 70 15 98/65 95 07/12/17 06:52 07/12/17 06:52 07/12/17 06:52 07/12/17 06:52 07/12/17 06:52 General appearance: Present: A&O X 3 - Head Head exam: Present: atraumatic, normocephalic - Eye Eye exam: Present: PERRL, conjuntiva pink, sclera anicteric Pupils: Present: PERRL - Neck Neck exam general surgery: Present: supple, trachea midline. Absent: lymphadenopathy, tenderness, nuchal rigidity, thyromegaly - Respiratory Respiratory exam: Present: CTAB. Absent: accessory muscle use, rales, rhonchi, wheezes - Cardiovascular Cardiovascular exam: Present: RRR, +S1, +S2. Absent: diastolic murmur, gallop, rubs, systolic murmur - GI/Abdominal GI/Abdominal exam: Present: normal bowel sounds, soft, no peritoneal signs. Absent: distended, tenderness - Extremities Exam Extremities exam: Present: warm, radial pulses palpable and symmetrical. Absent : calf tenderness, cyanotic, pedal edema - Neurological Exam Neurological exam: Present: CN II-XII intact, oriented X3, no focal deficits. Absent: pronater drift, facial droop, speech deficit - Skin Skin exam: Present: dry, intact, warm Internal Medicine: Result - Labs CBC & Chem 7: 07/11/17 06:35 07/11/17 06:35 - ABG Interpretation ABG results: PT/INR, D-dimer PT 11.4 Seconds (9.4-12.1) 07/10/17 11:25 Consult Discharge Plan - Plan Referrals: Lakesha Huerta MD [Primary Care Provider] -
[2017-07-12] MEDS ORDERED: (Doxepin Hcl [Doxepin Hcl] 10 MG) PO PRN (16:34)
[2017-07-12] MEDS: Topiramate 100 MG TABLET PO SCH (20:40)
[2017-07-12] MEDS ORDERED: DOXEPIN 10 MG PO SCH (21:00)
[2017-07-13] MEDS: Multivit/Ca/Min/Fe/FA 1 TAB TABLET PO SCH (08:04)
[2017-07-13] MEDS: Aspirin 81 MG TAB.CHEW PO SCH (08:04)
[2017-07-13] MEDS: Celecoxib 200 MG CAPSULE PO SCH (08:04)
[2017-07-13] MEDS: lamoTRIgine 100 MG TABLET PO SCH ×2 (08:04→20:59)
[2017-07-13] MEDS: *HR* Enoxaparin 40 MG/0.4 ML SYRINGE SQ SCH (08:05)
[2017-07-13] MEDS: Cholecalciferol (D-3) 1,000 UNIT TABLET PO SCH (20:59)
[2017-07-13] MEDS: Topiramate 100 MG TABLET PO SCH (20:59)
--- NOTE | 2017-07-13 22:48 | Internal Med Progress Note ---
Date of Encounter: 07/13/17 Time of Encounter: 15:20 - Subjective Interval history: Interval changes: 07-12-2017: She still feels dizzy. Hypotensive today and Metoprolol and Flomax held 07-13-2017: Called by RN to evaluate patient sitting on side of bed c/o of confusion, dysarthria and disequalibrium. Change in mental status/ encephalopathy: Her symptoms did not appear organic in nature and she had no focal deficits. Because of her sudden and transient change a CT-Head without contrast was done and did not show acute infarct, ICH, shift or mass effect. Symptoms resolved after a hour or so and were not related to medications changes either. Her neuro exam was completely normal. Orthostatic dizziness This patient's symptoms were likely related to underlying orthostatic blood pressure she is on beta tere and she has been taking at nighttime likely in the morning she was slightly dehydrated and that made her symptoms worse. Flomax was recently started Likely due to orthostasis All imaging studies negative All neuroimaging negative. Neurology and ENT and do not f she has Vertigo, but agree this is orthoas Continue IVFs and continue holding Flomax and BB Bipolar 1 disorder Patient has history of bipolar with anxiety presently appears to be stable continue with home medications Physical exam: - Constitutional Vitals: Temp Pulse Resp BP Pulse Ox 97.4 F L 83 14 90/59 94 07/13/17 20:15 07/13/17 20:15 07/13/17 20:15 07/13/17 20:15 07/13/17 21:01 General appearance: Present: cooperative, A&O X 3, pleasant, no acute distress, obese. Absent: disheveled, severe distress - Head Head exam: Present: atraumatic, normocephalic - Eye Eye exam: Present: EOMI, PERRL, conjuntiva pink, sclera anicteric. Absent: nystagmus, periorbital swelling, scleral icterus Pupils: Present: PERRL. Absent: fixed, irregular, miosis - ENT ENT exam: Present: mucous membranes moist, normal exam, normal oropharynx - Neck Neck exam general surgery: Present: full ROM, supple, trachea midline. Absent: lymphadenopathy, tenderness, nuchal rigidity, thyromegaly - GI/Abdominal GI/Abdominal exam: Present: normal bowel sounds, soft. Absent: distended, guarding, hepatomegaly, mass, rebound, rigid - Extremities Exam Extremities exam: Present: full ROM. Absent: joint swelling, tenderness, warm - Neurological Exam Neurological exam: Present: altered, CN II-XII intact, reflexes normal, no focal deficits. Absent: strengths equal and symetr throughout, pronater drift, facial droop, speech deficit - Psychiatric Psychiatric exam: Present: flat affect. Absent: normal affect, normal mood Internal Medicine: Result - Labs CBC & Chem 7: 07/11/17 06:35 07/11/17 06:35 - ABG Interpretation ABG results: PT/INR, D-dimer PT 11.4 Seconds (9.4-12.1) 07/10/17 11:25 - Impressions Impressions Head CT 07/13/17 14:56 IMPRESSION: No acute intracranial abnormality. However, the patient has cortical volume loss advanced for age and some subtle hypodensity in the white matter. Well this may be related to mild chronic microvascular change, possibility of demyelinating disease should be considered given history. RECOMMENDATIONS: Advise MRI imaging of the brain. D/ / Susanna Barraza MD / Susanna Barraza MD Interpreting Provider: Susanna Barraza MD Consult Discharge Plan - Plan Referrals: Lakesha Huerta MD [Primary Care Provider] -
[2017-07-14] MEDS: *HR* Enoxaparin 40 MG/0.4 ML SYRINGE SQ SCH (06:18)
[2017-07-14 08:10] LABS: Basophils % 0.5 %; Eosinophils # 0.1 K/mcL (0.0-0.6); Eosinophils % 1.9 %; Hemoglobin 13.3 g/dL (11.5-15.4); Immature Granulocytes % 0.2 % (0-4); Lymphocytes # 1.9 K/mcL (0.6-4.6); Lymphocytes % 33.1 %; Mean Corpuscular HGB Conc 33.3 g/dL (31.6-35.5); Mean Corpuscular Hemoglobin 29.2 pg (28.0-33.3); Mean Corpuscular Volume 87.9 fL (83.0-100.0); Monocytes # 0.5 K/mcL (0.0-1.3); Monocytes % 8.2 %; Neutrophils # 3.2 K/mcL (1.6-8.9); Platelet Count 155 K/mcL (140-400); Red Blood Count 4.55 M/mcL (3.82-4.97); Red Cell Distribution Width 12.9 % (11.5-14.5); Segmented Neutrophils % 56.1 %
[2017-07-14 08:36] LABS: BUN/Creatinine Ratio 17 (6-26); Blood Urea Nitrogen 14 mg/dL (6-20); Calcium 8.4 mg/dL (8.6-10.3); Carbon Dioxide 22 mEq/L (23-29); Chloride 114 mEq/L (98-107); Glucose 88 mg/dL (70-105); Osmolality,Calculated 290 (280-300); Potassium 3.8 mEq/L (3.5-5.1); Sodium 140 mEq/L (136-145); eGFR For African Americans > 60 (> 60); eGFR For Non-African Americans > 60 (> 60)
[2017-07-14] MEDS: Aspirin 81 MG TAB.CHEW PO SCH (08:57)
[2017-07-14] MEDS: lamoTRIgine 100 MG TABLET PO SCH ×2 (08:57→20:53)
[2017-07-14] MEDS: Multivit/Ca/Min/Fe/FA 1 TAB TABLET PO SCH (08:59)
[2017-07-14] MEDS: Celecoxib 200 MG CAPSULE PO SCH (08:59)
[2017-07-14] MEDS: Cholecalciferol (D-3) 1,000 UNIT TABLET PO SCH (20:52)
[2017-07-14] MEDS: Topiramate 100 MG TABLET PO SCH (20:52)
--- NOTE | 2017-07-15 02:43 | Internal Med Progress Note ---
Date of Encounter: 07/15/17 Time of Encounter: 17:45 - Subjective Interval history: Interval changes: 07-12-2017: She still feels dizzy when she stands up, but no dysequalibrium. Hypotensive today and Metoprolol and Flomax held 07-13-2017: Called by RN to evaluate patient sitting on side of bed c/o of confusion, dysarthria and disequalibrium. 07-14-2017: All orthostasis, confusion and dysarthria gone today. Today complaining of dysequalibrium Change in mental status/ encephalopathy: Her symptoms did not appear organic in nature and she had no focal deficits. Because of her sudden and transient change a CT-Head without contrast was done and did not show acute infarct, ICH, shift or mass effect. Symptoms resolved after a hour or so and were not related to medications changes either. Her neuro exam was completely normal. Orthostatic dizziness This patient's symptoms were likely related to underlying orthostatic blood pressure she is on beta tere and she has been taking at nighttime likely in the morning she was slightly dehydrated and that made her symptoms worse. Flomax was recently started Likely due to orthostasis All imaging studies negative All neuroimaging negative. Neurology and ENT and do not feel she has Vertigo, but agree this is orthoastasis. Continue IVFs and continue holding Flomax and BB. Her symptoms have changed daily with no imaging or physical exam findings to support reported symptoms other than orthostasis which has resolved. I suspect nonorganic etiology. For now continue Antivert and d/c in am. She may benefit from psych w/u. Bipolar 1 disorder Patient has history of bipolar with anxiety presently appears to be stable continue with home medications Physical exam: General appearance: Present: cooperative, A&O X 3, pleasant, no acute distress, obese. Absent: disheveled, severe distress - Head Head exam: Present: atraumatic, normocephalic - Eye Eye exam: Present: EOMI, PERRL, conjuntiva pink, sclera anicteric. Absent: nystagmus, periorbital swelling, scleral icterus Pupils: Present: PERRL. Absent: fixed, irregular, miosis - ENT ENT exam: Present: mucous membranes moist, normal exam, normal oropharynx - Neck Neck exam general surgery: Present: full ROM, supple, trachea midline. Absent: lymphadenopathy, tenderness, nuchal rigidity, thyromegaly - GI/Abdominal GI/Abdominal exam: Present: normal bowel sounds, soft. Absent: distended, guarding, hepatomegaly, mass, rebound, rigid - Extremities Exam Extremities exam: Present: full ROM. Absent: joint swelling, tenderness, warm - Neurological Exam Neurological exam: Present: altered, CN II-XII intact, reflexes normal, no focal deficits. Absent: strengths equal and symetr throughout, pronater drift, facial droop, speech deficit. No signs of exam findings of dysequalibrium. - Psychiatric Psychiatric exam: Present: flat affect. Absent: normal affect, normal mood - Constitutional Vitals: Temp Pulse Resp BP Pulse Ox 97.5 F L 72 16 91/59 94 07/15/17 00:33 07/15/17 00:33 07/15/17 00:33 07/15/17 00:33 07/15/17 00:33 General appearance: Present: cooperative, A&O X 3, pleasant, no acute distress, obese. Absent: disheveled, severe distress Internal Medicine: Result - Labs CBC & Chem 7: 07/14/17 08:01 07/14/17 08:01 Labs: Short CBC 07/14/17 Range/Units 08:01 WBC 5.7 (4.3-11.1) K/mcL Hgb 13.3 (11.5-15.4) g/dL Hct 40.0 (35.3-44.9) % Plt Count 155 (140-400) K/mcL Neutrophils # 3.2 (1.6-8.9) K/mcL BMP 07/14/17 08:01 Sodium 140 Potassium 3.8 Chloride 114 H Carbon Dioxide 22 L BUN 14 Creatinine 0.83 Glucose 88 Calcium 8.4 L - ABG Interpretation ABG results: PT/INR, D-dimer PT 11.4 Seconds (9.4-12.1) 07/10/17 11:25 Consult Discharge Plan - Plan Referrals: Lakesha Huerta MD [Primary Care Provider] -
[2017-07-15] MEDS: *HR* Enoxaparin 40 MG/0.4 ML SYRINGE SQ SCH (06:30)
[2017-07-15] MEDS: Multivit/Ca/Min/Fe/FA 1 TAB TABLET PO SCH (07:47)
[2017-07-15] MEDS: Celecoxib 200 MG CAPSULE PO SCH (07:47)
[2017-07-15] MEDS: lamoTRIgine 100 MG TABLET PO SCH ×2 (07:47→20:49)
[2017-07-15] MEDS: Aspirin 81 MG TAB.CHEW PO SCH (07:47)
[2017-07-15 07:59] LABS: Basophils % 0.7 %; Eosinophils # 0.1 K/mcL (0.0-0.6); Eosinophils % 1.9 %; Hematocrit 41.5 % (35.3-44.9); Hemoglobin 13.5 g/dL (11.5-15.4); Immature Granulocytes % 0.3 % (0-4); Lymphocytes # 1.9 K/mcL (0.6-4.6); Lymphocytes % 32.5 %; Mean Corpuscular HGB Conc 32.5 g/dL (31.6-35.5); Mean Corpuscular Hemoglobin 28.8 pg (28.0-33.3); Mean Corpuscular Volume 88.7 fL (83.0-100.0); Mean Platelet Volume 8.9 fL (9.4-12.4); Monocytes # 0.5 K/mcL (0.0-1.3); Neutrophils # 3.2 K/mcL (1.6-8.9); Platelet Count 184 K/mcL (140-400); Red Blood Count 4.68 M/mcL (3.82-4.97); Red Cell Distribution Width 12.8 % (11.5-14.5); Segmented Neutrophils % 56.6 %
[2017-07-15 08:14] LABS: BUN/Creatinine Ratio 17 (6-26); Blood Urea Nitrogen 16 mg/dL (6-20); Calcium 8.6 mg/dL (8.6-10.3); Carbon Dioxide 23 mEq/L (23-29); Chloride 110 mEq/L (98-107); Glucose 99 mg/dL (70-105); Osmolality,Calculated 289 (280-300); Potassium 4.4 mEq/L (3.5-5.1); Sodium 139 mEq/L (136-145); eGFR For African Americans > 60 (> 60); eGFR For Non-African Americans > 60 (> 60)
--- NOTE | 2017-07-15 16:12 | Internal Med Progress Note ---
Date of Encounter: 07/15/17 Time of Encounter: 16:12 - Subjective Interval history: Interval changes: 07-12-2017: She still feels dizzy when she stands up, but no dysequalibrium. Hypotensive today and Metoprolol and Flomax held 07-13-2017: Called by RN to evaluate patient sitting on side of bed c/o of confusion, dysarthria and disequalibrium. 07-14-2017: All orthostasis, confusion and dysarthria gone today. Today complaining of dysequalibrium 07-15-2017: A&O x3 c/o dyequalibrium. Change in mental status/ encephalopathy: Her symptoms did not appear organic in nature and she had no focal deficits. Because of her sudden and transient change a CT-Head without contrast was done and did not show acute infarct, ICH, shift or mass effect. Symptoms resolved after a hour or so and were not related to medications changes either. Her neuro exam was completely normal. Orthostatic dizziness This patient's symptoms were likely related to underlying orthostatic blood pressure she is on beta tere and she has been taking at nighttime likely in the morning she was slightly dehydrated and that made her symptoms worse. Flomax was recently started Likely due to orthostasis All imaging studies negative All neuroimaging negative. Neurology and ENT and do not feel she has Vertigo, but agree this is orthoastasis. Continue IVFs and continue holding Flomax and BB. Her symptoms have changed daily with no imaging or physical exam findings to support reported symptoms other than orthostasis which has resolved. I suspect nonorganic etiology. For now continue Antivert and d/c in am. She may benefit from psych w/u. Bipolar 1 disorder Patient has history of bipolar with anxiety presently appears to be stable continue with home medications Physical exam: General appearance: Present: cooperative, A&O X 3, pleasant, no acute distress, obese. Absent: disheveled, severe distress - Head Head exam: Present: atraumatic, normocephalic - Eye Eye exam: Present: EOMI, PERRL, conjuntiva pink, sclera anicteric. Absent: nystagmus, periorbital swelling, scleral icterus Pupils: Present: PERRL. Absent: fixed, irregular, miosis - ENT ENT exam: Present: mucous membranes moist, normal exam, normal oropharynx - Neck Neck exam general surgery: Present: full ROM, supple, trachea midline. Absent: lymphadenopathy, tenderness, nuchal rigidity, thyromegaly - GI/Abdominal GI/Abdominal exam: Present: normal bowel sounds, soft. Absent: distended, guarding, hepatomegaly, mass, rebound, rigid - Extremities Exam Extremities exam: Present: full ROM. Absent: joint swelling, tenderness, warm - Neurological Exam Neurological exam: Present: altered, CN II-XII intact, reflexes normal, no focal deficits. Absent: strengths equal and symetr throughout, pronater drift, facial droop, speech deficit. No signs of exam findings of dysequalibrium. - Psychiatric Psychiatric exam: Present: flat affect. Absent: normal affect, normal mood - Constitutional Vitals: Temp Pulse Resp BP Pulse Ox 97.7 F 69 14 90/64 99 07/15/17 12:20 07/15/17 12:20 07/15/17 12:20 07/15/17 12:20 07/15/17 12:20 General appearance: Present: cooperative, A&O X 3, pleasant, no acute distress, obese. Absent: disheveled, severe distress Internal Medicine: Result - Labs CBC & Chem 7: 07/15/17 07:34 07/15/17 07:34 Labs: Short CBC 07/15/17 Range/Units 07:34 WBC 5.7 (4.3-11.1) K/mcL Hgb 13.5 (11.5-15.4) g/dL Hct 41.5 (35.3-44.9) % Plt Count 184 (140-400) K/mcL Neutrophils # 3.2 (1.6-8.9) K/mcL BMP 07/15/17 07:34 Sodium 139 Potassium 4.4 Chloride 110 H Carbon Dioxide 23 BUN 16 Creatinine 0.93 Glucose 99 Calcium 8.6 - ABG Interpretation ABG results: PT/INR, D-dimer PT 11.4 Seconds (9.4-12.1) 07/10/17 11:25 Consult Discharge Plan - Plan Referrals: Lakesha Huerta MD [Primary Care Provider] -
[2017-07-15] MEDS: Topiramate 100 MG TABLET PO SCH (20:49)
[2017-07-15] MEDS: Cholecalciferol (D-3) 1,000 UNIT TABLET PO SCH (20:50)
[2017-07-16] MEDS: *HR* Enoxaparin 40 MG/0.4 ML SYRINGE SQ SCH (06:28)
[2017-07-16 07:21] LABS: Basophils % 0.5 %; Eosinophils # 0.2 K/mcL (0.0-0.6); Eosinophils % 2.7 %; Hematocrit 40.1 % (35.3-44.9); Hemoglobin 12.9 g/dL (11.5-15.4); Immature Granulocytes % 0.2 % (0-4); Lymphocytes # 1.9 K/mcL (0.6-4.6); Lymphocytes % 33.6 %; Mean Corpuscular HGB Conc 32.2 g/dL (31.6-35.5); Mean Corpuscular Hemoglobin 28.2 pg (28.0-33.3); Mean Corpuscular Volume 87.7 fL (83.0-100.0); Mean Platelet Volume 9.1 fL (9.4-12.4); Monocytes # 0.5 K/mcL (0.0-1.3); Monocytes % 8.1 %; Neutrophils # 3.1 K/mcL (1.6-8.9); Platelet Count 174 K/mcL (140-400); Red Blood Count 4.57 M/mcL (3.82-4.97); Red Cell Distribution Width 12.6 % (11.5-14.5); Segmented Neutrophils % 54.9 %
[2017-07-16] MEDS: Aspirin 81 MG TAB.CHEW PO SCH (07:29)
[2017-07-16] MEDS: Multivit/Ca/Min/Fe/FA 1 TAB TABLET PO SCH (07:29)
[2017-07-16] MEDS: lamoTRIgine 100 MG TABLET PO SCH (07:29)
[2017-07-16] MEDS: Celecoxib 200 MG CAPSULE PO SCH (07:29)
[2017-07-16 09:41] LABS: BUN/Creatinine Ratio 22 (6-26); Blood Urea Nitrogen 20 mg/dL (6-20); Calcium 8.1 mg/dL (8.6-10.3); Carbon Dioxide 19 mEq/L (23-29); Chloride 110 mEq/L (98-107); Glucose 90 mg/dL (70-105); Osmolality,Calculated 284 (280-300); Sodium 136 mEq/L (136-145); eGFR For African Americans > 60 (> 60); eGFR For Non-African Americans > 60 (> 60)
[2017-07-16 11:00] VITALS: BP 102/70
--- NOTE | 2017-07-16 14:00 | Discharge Summary ---
Date of Encounter: 07/17/17 Time of Encounter: 13:56 - Discharge Medications Prescriptions: Meclizine [Antivert] 25 mg PO Q6HR PRN 7 Days #56 tablet PRN Reason: Dizziness Home Medications: Aspirin 81 mg PO DAILY 12/10/15 [History] Biotin [Marquis Biotin] 10,000 mcg PO DAILY 12/10/15 [History] Calcium Carbonate/Vitamin D3 [Calcium 600 + Vit D Softgel] 1 tab PO DAILY [History] Celecoxib [Celebrex] 200 mg PO DAILY 12/10/15 [History] Cholecalciferol (Vitamin D3) [Vitamin D3] 1,000 unit PO DAILY 12/10/15 [History] Cyanocobalamin (Vitamin B-12) [Vitamin B-12] 500 mcg PO DAILY 12/10/15 [History] Doxepin HCl 10 mg PO TID 12/10/15 [History] Metoprolol [Lopressor] 25 mg PO BID 12/10/15 [History] Multivitamin [Multivitamins] 1 tab PO DAILY 12/10/15 [History] Topiramate [Topamax] 150 mg PO DAILY 12/10/15 [History] clonazePAM [Clonazepam] 1 mg PO TID PRN 12/10/15 [History] lamoTRIgine [Lamotrigine] 200 mg PO BID 12/10/15 [History] Ondansetron ODT [Zofran ODT] 4 mg SL Q8HR #20 tab.rapdis 07/03/17 [Rx] Cholecalciferol (Vitamin D3) [Vitamin D3] 50,000 unit PO QWEEK 07/10/17 [History ] Meclizine [Antivert] 25 mg PO Q6HR PRN 7 Days #56 tablet 07/16/17 [Rx] Allergies/Adverse Reactions: 3 Allergy/AdvReac Type Severity Reaction Status Date / Time No Known Allergies Allergy Verified 07/10/17 09:59 Procedures/tests Complete & Pending: Procedures Performed prior 72 hours Category Date Time Status CT head/brain wo con [CT] Stat Cat Scan 07/13/17 14:56 Completed Date of admission: 07/10/17 15:12 Primary care physician: Lakesha Huerta MD Consults: 07/10/17 15:24 Consult to Occupational Therapy [CONS] Routine Comment: Evaluate, develop and implement POC Reason for Consult: vertigo Consult to Physical Therapy [CONS] Routine Comment: Evaluate, develop and implement POC Reason for Consult: vertigo 07/10/17 15:26 Consult to ENT [CONS] Routine Consulting Provider: MILY Chery Reason for Consult: vertigo Time Notified: 15:27 Call Completed: Yes 07/15/17 14:51 Consult to Physical Therapy [CONS] Routine Comment: Evaluate, develop and implement POC Reason for Consult: Discharge needs. Risk of falls. Eval and treat OT [Consult to Occupational Therapy] [CONS] Routine Comment: Evaluate, develop and implement POC Reason for Consult: Eval and treat. Discharge needs. Risk for falls. Discharging clinician: Steve Patel - Patient Status Disposition: Home, Self-Care Condition: Fair - Discharge Instructions Follow Up With: Lakesha Huerta MD [Primary Care Provider] - 07/30/17 12:00 pm Additional Instructions: IF SYMPTOMS RETURN GO TO ER FOLLOW UP WITH YOUR PRIMARY DOCTOR IN 10-14 DAYS MAKE SURE YOU CHECK YOUR BLOOD PRESSURE PRIOR TO TAKING ANY BLOOD PRESSURE MEDICATIONS TAKE ALL MEDICATIONS PRESCRIBED Hospital course: Interval changes: 07-12-2017: She still feels dizzy when she stands up, but no dysequalibrium. Hypotensive today and Metoprolol and Flomax held 07-13-2017: Called by RN to evaluate patient sitting on side of bed c/o of confusion, dysarthria and disequalibrium. 07-14-2017: All orthostasis, confusion and dysarthria gone today. Today complaining of dysequalibrium 07-15-2017: A&O x3 c/o dyequalibrium. 07-16-2017: She was A&O x3 earlier todnd her mothersttes twice this morning she called to talk and she was very alert and had no signs of lethargy or confusion. This afternoon she states she is too tired to go home and is acting as if she cannot even sit up. Her mother states that she thinks this is her bipolar disorder because just minutes earlier she was completely nomal. Every time we discuss discharge she developes a new reason to not be discharged. She has no focal neuro deficit and her symptoms are suspicious for nonorganic symptoms. Physical exam: General appearance: Present: cooperative, Somnulent, A&O X 3, pleasant, no acute distress, obese. Absent: disheveled, severe distress - Head Head exam: Present: atraumatic, normocephalic - Eye Eye exam: Present: EOMI, PERRL, conjuntiva pink, sclera anicteric. Absent: nystagmus, periorbital swelling, scleral icterus Pupils: Present: PERRL. Absent: fixed, irregular, miosis - ENT ENT exam: Present: mucous membranes moist, normal exam, normal oropharynx - Neck Neck exam general surgery: Present: full ROM, supple, trachea midline. Absent: lymphadenopathy, tenderness, nuchal rigidity, thyromegaly - GI/Abdominal GI/Abdominal exam: Present: normal bowel sounds, soft. Absent: distended, guarding, hepatomegaly, mass, rebound, rigid - Extremities Exam Extremities exam: Present: full ROM. Absent: joint swelling, tenderness, warm - Neurological Exam Neurological exam: Present: altered, CN II-XII intact, reflexes normal, no focal deficits. Absent: strengths equal and symetr throughout, pronater drift, facial droop, speech deficit. No signs of exam findings of dysequalibrium. - Psychiatric Psychiatric exam: Present: flat affect. Absent: normal affect, normal mood A/P: Change in mental status/ encephalopathy / convernsion d/o): Her symptoms did not appear organic in nature and she had no focal deficits. Because of her sudden and transient change a CT-Head without contrast was done and did not show acute infarct, ICH, shift or mass effect. Symptoms resolved after a hour or so and were not related to medications changes either. Her neuro exam was completely normal. Orthostatic dizziness This patient's symptoms were likely related to underlying orthostatic blood pressure she is on beta tere and she has been taking at nighttime likely in the morning she was slightly dehydrated and that made her symptoms worse. Flomax was recently started Likely due to orthostasis All imaging studies negative All neuroimaging negative. Neurology and ENT and do not feel she has Vertigo, but agree this is orthoastasis. Continue IVFs and continue holding Flomax and BB. From ENT consult: Misti-Hallpike completed and negative at this time. Patient does not report symptoms Consistent with true vertigo. She does report a history of migraines and tension headaches, and states that she feels that her symptoms are similar to those experienced with tension headaches she has had in the past. Her blood pressures have also been trending in the low 100s systolically, and she has been experiencing episodes of tachycardia. Patient reports normal blood pressures at home with systolic usually running in the 120s. Would recommend evaluation for orthostatic blood pressure. No further ENT evaluation is warranted at this time. ENT is signing off. From Neurology consult: As far as neurology standpoint no evidence of any acute stroke on clinical exam as well as on imaging studies. No evidence of any central dizziness or central causes of the dizziness and particularly no evidence of any posterior circulation infarct. Less likely peripheral or vestibular in nature already been evaluated by ENT follow the recommendations Patient has an history of chronic migraines perhaps may be contributing to her symptoms at this time do not think that she would require any preventive therapy . From neurology standpoint patient could be discharged to home with follow-up with the primary care physician Her symptoms have changed daily with no imaging or physical exam findings to support reported symptoms other than orthostasis which has resolved. I suspect nonorganic etiology. For now continue Antivert and d/c today. She may benefit from psych f/u visiy as an OP.. Bipolar 1 disorder Patient has history of bipolar with anxiety. Continue home medications and f/u with psych as OP Hospital course: The patient is a 47 yr woman with a history of Bipolar d/o who presented with symptoms of orthostasis and was admitted for these symptoms. Her extensive neuroimaging w/u failed to demonstrate and acute organic cause for symptom. Daily her symptoms changed and ne fit with any defined organic cause other than orthosis. She was evaluated Neurology and ENT who both reached the same conclusion and recommended OP f/u but no further testing. She was finally discharged after nahum at length with her at length. She revealed that her daughter has been going through a greatd deal of stress and that he feels her symptoms drastically change throughout the day. She live with her mother nd has supervion at home and Hospital course: Ms. Mccormick is a 47 year old female past medical history of DVT kidney stones bipolar disorder. According to the patient she has been in her usual state of health, she was treated for kidney stones several weeks ago and has been doing well. This a.m. she awoke and she felt dizzy and she did not think anything about it and went back to bed. A couple hours later she try to get up again felt dizzy and was having difficulty ambulating felt as if she was going to fall. She had a cup of matilde and began to experience a headache. Again she attempted to ambulate and felt unsteady as if she was going to fall. She called a friend to transport her to the hospital and as she was waiting outside she fell down she denies striking her head or any loss of consciousness. She was brought to the ER for evaluation. In the ER lab work was obtained which was unremarkable CT of head was negative hemorrhage intracranial abnormality MRI MRA head and neck were all negative for any stroke or hemorrhage. She was admitted for further workup and evaluation. Presently patient is alert and appropriate. Neuro exam intact however she was unable to ambulate she is very unsteady on her feet. She did complain of frontal headache which she described as throbbing with associated symptoms of photophobia. She was evaluated by ENTand Neurolgy and had an extensive w/uu revealling only orthostasis. Multiple changes in symptoms ocured during her stay all of which are suspicious for a conversion d/o but do not fwith a true organic problem except orthostasis. D/c' d to home in stable condition. Time spent discussing smoking cessation with patient: more than 10 minutes - Time Spent with Patient Total time spent providing and/or coordinating discharge services: Greater than 30 minutes - Constitutional Vitals: Temp Pulse Resp BP Pulse Ox 97.6 F 95 16 102/70 96 07/16/17 11:00 07/16/17 11:00 07/16/17 11:00 07/16/17 11:00 07/16/17 11:00 General appearance: Present: cooperative, A&O X 3, pleasant, no acute distress, obese. Absent: disheveled, severe distress
== END 2017-07-16 14:54 | disposition home or self-care (01) ==
LOC: 3NENU 09:51 → EMEROO 09:51 → 3NENU 16:11
PROVIDERS: ADMIT Internal Medicine; ATTEND Hospitalist

== ENCOUNTER 2017-07-24 09:49 | Observation (INO) ==
[2017-07-24] MEDS ORDERED: 0.9 % Sodium Chloride 500 ML IVC ONE (10:19)
[2017-07-24] MEDS ORDERED: 0.9 % Sodium Chloride 1,000 ML IVC ONE (10:25)
[2017-07-24 10:34] LABS: Basophils # 0.1 K/mcL (0.0-0.2); Basophils % 0.7 %; Eosinophils # 0.1 K/mcL (0.0-0.6); Eosinophils % 1.9 %; Hematocrit 41.7 % (35.3-44.9); Hemoglobin 13.7 g/dL (11.5-15.4); Immature Granulocytes % 0.3 % (0-4); Lymphocytes # 1.8 K/mcL (0.6-4.6); Lymphocytes % 26.4 %; Mean Corpuscular HGB Conc 32.9 g/dL (31.6-35.5); Mean Corpuscular Hemoglobin 28.4 pg (28.0-33.3); Mean Corpuscular Volume 86.3 fL (83.0-100.0); Monocytes # 0.5 K/mcL (0.0-1.3); Monocytes % 6.6 %; Neutrophils # 4.5 K/mcL (1.6-8.9); Platelet Count 218 K/mcL (140-400); Red Blood Count 4.83 M/mcL (3.82-4.97); Red Cell Distribution Width 12.5 % (11.5-14.5); Segmented Neutrophils % 64.1 %
[2017-07-24 10:40] LABS: INR 1.1; Prothrombin Time 11.9 Seconds (9.4-12.1)
[2017-07-24 10:43] LABS: Activated Partial Thrombo Time 28.7 Seconds (26.0-36.0)
[2017-07-24 10:52] LABS: Bilirubin,Urine Negative (Negative); Blood,Urine Negative (Negative); Clarity,Urine Clear (Clear); Color,Urine Yellow (Yellow); Glucose,Urine (UA) Normal (Normal); Ketones,Urine Negative (Negative); Leukocyte Esterase,Urine Negative (Negative); Nitrite,Urine Negative (Negative); Protein,Urine Negative (Neg-Trace); Specific Gravity,Urine 1.022 (1.010-1.025); Urobilinogen,Urine Normal (Normal)
--- NOTE | 2017-07-24 10:53 | Emergency Department Note ---
Disposition Clinical Impression: Bradycardia Hypotension Qualifiers: Hypotension type: unspecified hypotension type Qualified Code(s): I95.9 - Hypotension, unspecified Disposition: Admitted As Inpatient Condition: Good Time of Disposition: 11:33 General Adult HPI - General Chief complaint: ED General Medical Stated complaint: Low BP Time Seen by Provider: 07/24/17 09:57 Source: patient Mode of arrival: ambulatory Limitations: no limitations Nursing Notes Reviewed: Yes Vital Signs Reviewed: Yes - History of Present Illness HPI Narrative: There is presents emergency room from the cardiology clinic for evaluation of hypotension. Patient was just seen in the hospital and discharged within the last week. Patient was discharged home after having a lengthy evaluation for strokelike symptoms. Patient was given cardiology follow-up secondary to abnormal cardiac rhythm and hypotension. Patient was hypotensive in the clinic and was sent over here to the emergency room for evaluation. Patient denied any other symptoms except for dizziness. Onset (ago): day(s) Radiation: non-radiation Pain Scale: 0 Improves with: nothing Worsens with: nothing Associated symptoms: Reports: denies other symptoms Treatments Prior to Arrival: none - Related Data Home Medications Medication Instructions Recorded Confirmed Aspirin 81 mg PO DAILY 12/10/15 07/10/17 Biotin [Marquis Biotin] 10,000 mcg PO DAILY 12/10/15 07/10/17 Calcium Carbonate/Vitamin D3 1 tab PO DAILY 12/10/15 07/10/17 [Calcium 600 + Vit D Softgel] Celecoxib [Celebrex] 200 mg PO DAILY 12/10/15 07/10/17 Cholecalciferol (Vitamin D3) 1,000 unit PO DAILY 12/10/15 07/10/17 [Vitamin D3] Cyanocobalamin (Vitamin B-12) 500 mcg PO DAILY 12/10/15 07/10/17 [Vitamin B-12] Doxepin HCl 10 mg PO TID 12/10/15 07/10/17 Metoprolol [Lopressor] 25 mg PO BID 12/10/15 07/10/17 Multivitamin [Multivitamins] 1 tab PO DAILY 12/10/15 07/10/17 Topiramate [Topamax] 150 mg PO DAILY 12/10/15 07/10/17 clonazePAM [Clonazepam] 1 mg PO TID PRN 12/10/15 07/10/17 lamoTRIgine [Lamotrigine] 200 mg PO BID 12/10/15 07/10/17 Cholecalciferol (Vitamin D3) 50,000 unit PO QWEEK 07/10/17 07/10/17 [Vitamin D3] Previous Rx's Medication Instructions Recorded Ondansetron ODT [Zofran ODT] 4 mg SL Q8HR #20 tab.rapdis 07/03/17 Meclizine [Antivert] 25 mg PO Q6HR PRN 7 Days #56 tablet 07/16/17 Allergies Allergy/AdvReac Type Severity Reaction Status Date / Time No Known Allergies Allergy Verified 07/24/17 10:08 All systems ED: reviewed and negative except as stated. Review of Systems: As Per HPI Constitutional: Denies: fever, chills, weakness Cardiovascular: Denies: chest pain, palpitations, dyspnea on exertion Respiratory: Denies: cough, dyspnea, wheezes Gastrointestinal: Denies: nausea, vomiting, diarrhea Genitourinary: Denies: dysuria, frequency Musculoskeletal: Denies: back pain, neck pain Integumentary: Denies: rash Neurological: Denies: headache, weakness Psychiatric: Denies: anxiety Endocrine: Denies: fatigue Past Medical History - Past Medical History Attestation: Yes The following information was validated with the patient. Source: patient Medical history: Reports: DVT, kidney stones, pulmonary embolus Surgical history: Reports: appendectomy, , cholecystectomy, herniorrhaphy, ureteral stent Psychiatric history: Reports: anxiety, bipolar - Social History Smoking Status: Light tobacco smoker Smokeless Tobacco Status: No Alcohol use: Reports: rarely Drug use: Reports: none Physical Exam - General Limitations: no limitations General appearance: alert - Head Head exam: atraumatic, normocephalic, normal inspection - ENT ENT exam: normal exam, normal oropharynx, mucous membranes moist - Neck Neck exam: Present: normal inspection, full ROM, trachea midline - Chest Chest inspection: Present: normal inspection, symmetric chest wall rise - Respiratory Respiratory exam: Present: normal lung sounds bilaterally - Cardiovascular Cardiovascular exam: Present: regular rate, normal rhythm, normal heart sounds - Abdominal Exam Abdominal exam: Present: soft, Non-Tender, normal bowel sounds. Absent: tenderness, distention, guarding, rebound, rigidity, Dasilva's sign, Rovsing's sign, tenderness at McBurney's Point - Extremities Exam Extremities exam: Present: normal inspection, full ROM, normal capillary refill. Absent: tenderness - Back Exam Back exam: Present: normal inspection, full ROM. Absent: tenderness - Neurological Exam Neurological exam: Present: alert, oriented X3, CN II-XII intact, normal gait - Skin Skin exam: Present: warm, dry, intact, normal color Course Course Narrative: 47-year-old female seen and examined at the time of arrival. See history of present illness. Patient presents to emergency room with complaint of hypotension. She was seen at the cardiology office today for outpatient evaluation after a recent admission. Vital signs on presentation show bradycardia with hypotension. Patient denies taking any of her morning medications. Patient denies taking her metoprolol. Concern is noted for possible medication induced hypotension here today with unknown intention with the patient. She denies suicidal homicidal ideation. Otherwise her physical exam is unremarkable. Last time she was seen and evaluated patient was admitted for neurologic symptoms and had a detailed workup completed with MRIs of the brain as well as neck. Nothing was found at that time the patient did have a cardiac arrhythmia and was evaluated in the inpatient setting and then followed up in the outpatient setting today. Patient is asymptomatic at this point denying any other symptoms complaints or issues. Her vital signs remained hypotensive and bradycardiac despite fluid resuscitation. Labs otherwise unremarkable at this time chest x-ray will be completed. EKG is showing no acute signs of abnormality or issue. Patient will be discussed with the hospitalist for admission. No other acute findings on physical exam at this time. Patient is resting comfortably in the bed. Disposition will be determined once workup is completed - Reevaluation(s) Reevaluation #1: Patient on a stable laboratory this time troponin is negative EKG is normal. BMP is normal. Patient was discussed with the hospitalist Dr. Bass. Detailed review of the presentation symptoms medical history intervention were discussed at length. Patient will be admitted for symptomatic bradycardia and hypotension. No other concerning lesions noted this point. Time: 11:23 Vital Signs Temperature 97.5 F L 07/24/17 10:08 Pulse Rate 60 07/24/17 10:08 Respiratory Rate 20 07/24/17 10:08 Blood Pressure 73/55 07/24/17 10:08 O2 Sat by Pulse Oximetry 97 07/24/17 10:08 Temperature 97.5 F L 07/24/17 10:08 Pulse Rate 90 07/24/17 10:30 Respiratory Rate 18 07/24/17 10:30 Blood Pressure 91/53 07/24/17 10:30 O2 Sat by Pulse Oximetry 99 07/24/17 10:30 Oxygen Delivery Oxygen Delivery Room Air Medical Decision Making - MDM Narrative Medical decision making narrative: Hypotension, bradycardia - Medical Records Medical records reviewed: Yes I reviewed the patient's medical records. - Lab Data Lab results reviewed: Yes I reviewed the patient's lab results. Result diagrams: 07/24/17 10:24 Lab Results 07/24/17 Range/Units 10:24 WBC 7.0 (4.3-11.1) K/mcL RBC 4.83 (3.82-4.97) M/mcL Hgb 13.7 (11.5-15.4) g/dL Hct 41.7 (35.3-44.9) % MCV 86.3 (83.0-100.0) fL MCH 28.4 (28.0-33.3) pg MCHC 32.9 (31.6-35.5) g/dL RDW 12.5 (11.5-14.5) % Plt Count 218 (140-400) K/mcL MPV 9.0 L (9.4-12.4) fL Immature Gran % 0.3 (0-4) % Seg Neutrophils % 64.1 % Lymphocytes % 26.4 % Monocytes % 6.6 % Eosinophils % 1.9 % Basophils % 0.7 % Neutrophils # 4.5 (1.6-8.9) K/mcL Lymphocytes # 1.8 (0.6-4.6) K/mcL Monocytes # 0.5 (0.0-1.3) K/mcL Eosinophils # 0.1 (0.0-0.6) K/mcL Basophils # 0.1 (0.0-0.2) K/mcL - Radiology Data Radiology results reviewed: Yes I reviewed the patient's radiology results. Chest x-ray is negative for acute infiltrate or abnormality. - EKG Data EKG #1 EKG attestation: Yes I reviewed and interpreted this EKG. EKG results narrative: EKG shows sinus rhythm. Bradycardia noted. [place] interval 181. QRS duration of 78. QTC of 402. [place] appears to be normal. No acute signs of ST segment elevation or abnormality. EKG reviewed from 07/10/17 that appears to be similar rhythm. Patient shows no acute signs of ST segment elevation or abnormality. No acute signs of WPW or Brugada syndrome.
[2017-07-24 11:04] LABS: Calcium 8.4 mg/dL (8.6-10.3); Carbon Dioxide 21 mEq/L (23-29); Chloride 107 mEq/L (98-107); Potassium 4.5 mEq/L (3.5-5.1); Sodium 132 mEq/L (136-145)
[2017-07-24 11:10] LABS: BUN/Creatinine Ratio 23 (6-26); Blood Urea Nitrogen 19 mg/dL (6-20); Glucose 155 mg/dL (70-105); Osmolality,Calculated 279 (280-300); eGFR For African Americans > 60 (> 60); eGFR For Non-African Americans > 60 (> 60)
--- NOTE | 2017-07-24 11:43 | Internal Med History&Physical ---
Date of Encounter: 07/24/17 Time of Encounter: 11:40 Assessment and Plan (1) Bradycardia Current visit: Yes Status: Acute This bradycardia heart rate recorded in the emergency room was as 60 then 90 and then 45 Will monitor on telemetry and check a TSH (2) Hypotension Current visit: Yes Status: Acute Hypotension patient during last hospital admission had several episode of hypotension not due to bradycardia it appears patient would need medicine to raise her blood pressure does not need his pacemaker for bradycardia Qualifiers: Hypotension type: unspecified hypotension type Qualified Code(s): I95.9 - Hypotension, unspecified (3) Orthostatic dizziness Current visit: No Status: Acute Orthostatic dizziness / vasodepressor syndrome (4) Bipolar 1 disorder Current visit: No Status: Chronic Chronic we will resume home medication (5) Hx of deep venous thrombosis Current visit: No Status: Chronic Chronic Internal Medicine - H&P: HPI Chief complaint: hypotension Admitted From: Emergency Dept Plans for Post Hospital Care: Home History of present illness: Ms. Mccormick is a 47 year old female Patient with history of DVT, kidney stone, PE, bipolar disorder, she was recently admitted to the hospital and discharged July 16 patient was admitted for evaluation of of TIA. Neurology evaluation patient had orthostatic dizziness due to hypotension beta tere was stopped patient was seen today by her cardiology office and she was hypotensive blood pressure 70/55 and then sent to the emergency room patient reports that she has not been taking her Klonopin and l beta tere Has been feeling lightheaded and dizzy, no chest pain no syncope. Patient blood pressure in emergency room last blood pressure measure at 91 systolic heart rate in 50s and high 40s. The exam was unremarkable BNP was 28. Past Med Surg Social Fam HX - Past Medical History Medical history: DVT, kidney stones, pulmonary embolus Psychiatric history: anxiety, bipolar - Past Surgical History Surgical History: appendectomy, , cholecystectomy, herniorrhaphy, ureteral stent - Social History Smoking Status: Light tobacco smoker Smokeless Tobacco Status: No Alcohol use: rarely Drug use: none Internal Medicine - H&P: Meds Aspirin 81 mg PO DAILY 12/10/15 [History] Biotin [Marquis Biotin] 10,000 mcg PO DAILY 12/10/15 [History] Calcium Carbonate/Vitamin D3 [Calcium 600 + Vit D Softgel] 1 tab PO DAILY [History] Celecoxib [Celebrex] 200 mg PO DAILY 12/10/15 [History] Cholecalciferol (Vitamin D3) [Vitamin D3] 1,000 unit PO DAILY 12/10/15 [History] Cyanocobalamin (Vitamin B-12) [Vitamin B-12] 500 mcg PO DAILY 12/10/15 [History] Doxepin HCl 10 mg PO TID 12/10/15 [History] Metoprolol [Lopressor] 25 mg PO BID 12/10/15 [History] Multivitamin [Multivitamins] 1 tab PO DAILY 12/10/15 [History] Topiramate [Topamax] 150 mg PO DAILY 12/10/15 [History] clonazePAM [Clonazepam] 1 mg PO TID PRN 12/10/15 [History] lamoTRIgine [Lamotrigine] 200 mg PO BID 12/10/15 [History] Ondansetron ODT [Zofran ODT] 4 mg SL Q8HR #20 tab.rapdis 07/03/17 [Rx] Cholecalciferol (Vitamin D3) [Vitamin D3] 50,000 unit PO QWEEK 07/10/17 [History ] Meclizine [Antivert] 25 mg PO Q6HR PRN 7 Days #56 tablet 07/16/17 [Rx] 3 Allergy/AdvReac Type Severity Reaction Status Date / Time No Known Allergies Allergy Verified 07/24/17 10:08 All Systems PM: A 10-system review of systems was performed and is negative for pertinent findings except as documented above in the HPI. - Constitutional Constitutional: no chills, no fever(s), no night sweats - EENT Eyes: no change in vision, no discharge, no pain, no photophobia Ears: no ear discharge, no ear pain, no tinnitus Nose, mouth and throat: no dysphagia, no nasal discharge, no neck pain, no sore throat - Cardiovascular Cardiovascular ROS IM: lightheadedness, other - Respiratory Respiratory: no cough, no dyspnea, no wheezing, no excessive phlegm production - Gastrointestinal Gastrointestinal: no abdominal pain, no diarrhea, no hematemesis, no hematochezia, no melena, no nausea, no vomiting - Genitourinary Genitourinary: no change in urinary stream, no dysuria, no flank pain, no hematuria - Musculoskeletal Musculoskeletal ROS IM: no numbness, no tingling - Integumentary Integumentary IM: no rash, no unusual bruising - Neurological Neurological ROS: no confusion, no convulsions, no focal weakness, no numbness, no tingling, no tremor(s) - Constitutional Vitals: Temp Pulse Resp BP Pulse Ox 97.5 F L 45 18 84/47 94 07/24/17 10:08 07/24/17 11:32 07/24/17 11:32 07/24/17 11:32 07/24/17 11:32 - Head Head exam: Present: atraumatic, normocephalic - Eye Eye exam: Present: PERRL, conjuntiva pink, sclera anicteric Pupils: Present: PERRL - Neck Neck exam general surgery: Present: supple, trachea midline. Absent: lymphadenopathy - Respiratory Respiratory exam: Present: CTAB. Absent: accessory muscle use, rales, rhonchi, wheezes - Cardiovascular Cardiovascular exam: Present: RRR, +S1, +S2. Absent: diastolic murmur, gallop, rubs, systolic murmur - GI/Abdominal GI/Abdominal exam: Present: normal bowel sounds, soft, no peritoneal signs. Absent: distended, tenderness - Extremities Exam Extremities exam: Present: warm, radial pulses palpable and symmetrical. Absent : calf tenderness, cyanotic, pedal edema - Neurological Exam Neurological exam: Present: CN II-XII intact, oriented X3, no focal deficits. Absent: pronater drift, facial droop, speech deficit - Skin Skin exam: Present: dry, intact Internal Med - H&P Results - Labs CBC & Chem 7: 07/24/17 10:24 07/24/17 10:24 Labs: Short CBC 07/24/17 Range/Units 10:24 WBC 7.0 (4.3-11.1) K/mcL Hgb 13.7 (11.5-15.4) g/dL Hct 41.7 (35.3-44.9) % Plt Count 218 (140-400) K/mcL Neutrophils # 4.5 (1.6-8.9) K/mcL BMP 07/24/17 10:24 Sodium 132 L Potassium 4.5 Chloride 107 Carbon Dioxide 21 L BUN 19 Creatinine 0.83 Glucose 155 H Calcium 8.4 L Cardiac Enzymes 07/24/17 Range/Units 10:24 Troponin I < 0.03 (< 0.04) ng/mL Urine 07/24/17 Range/Units 10:32 Urine Color Yellow (Yellow) Urine Clarity Clear (Clear) Urine pH 6.0 (5.0-8.0) pH Units Ur Specific [place] 1.022 (1.010-1.025) Urine Protein Negative (Neg-Trace) mg/dL Urine Glucose (UA) Normal (Normal) mg/dL - Impressions ITS Impressions Chest X-Ray 07/24/17 10:19 IMPRESSION: No acute cardiopulmonary disease D/ / Jay Pandey MD / Jay Pandey MD Interpreting Provider: Jay Pandey MD
[2017-07-24] MEDS ORDERED: Naloxone 0.4 MG/ML INJ IVP PRN (11:50)
[2017-07-24 11:59] LABS: Amphetamine Screen,Urine Negative ng/mL (Cutoff=1000); Barbiturate Screen,Urine Negative ng/mL (Cutoff=200); Benzodiazepines Screen,Urine Positive ng/mL (Cutoff=200); Cannabinoid Screen,Urine Negative ng/mL (Cutoff = 50); Cocaine Screen,Urine Negative ng/mL (Cutoff= 300); Opiate Screen,Urine Negative ng/mL (Cutoff=300); Phencyclidine Screen,Urine Negative ng/mL (Cutoff=25)
[2017-07-24] MEDS: 0.9 % Sodium Chloride 1,000 ML IVC SCH ×2 (14:40→23:52)
[2017-07-25 00:58] LABS: Basophils % 0.6 %; Eosinophils # 0.2 K/mcL (0.0-0.6); Eosinophils % 2.7 %; Hematocrit 38.7 % (35.3-44.9); Hemoglobin 12.7 g/dL (11.5-15.4); Immature Granulocytes % 0.2 % (0-4); Immature Platelets 1.4 % (1.1-6.1); Lymphocytes # 2.3 K/mcL (0.6-4.6); Mean Corpuscular HGB Conc 32.8 g/dL (31.6-35.5); Mean Corpuscular Hemoglobin 28.7 pg (28.0-33.3); Mean Corpuscular Volume 87.6 fL (83.0-100.0); Monocytes # 0.5 K/mcL (0.0-1.3); Monocytes % 7.7 %; Neutrophils # 3.2 K/mcL (1.6-8.9); Platelet Count 184 K/mcL (140-400); Red Blood Count 4.42 M/mcL (3.82-4.97); Red Cell Distribution Width 12.7 % (11.5-14.5); Segmented Neutrophils % 51.8 %
[2017-07-25 01:21] LABS: Alanine Aminotransferase 15 Units/L (7-52); Albumin 3.2 g/dL (3.5-5.7); Albumin/Globulin Ratio 1.3 (1.1-2.2); Alkaline Phosphatase 81 Units/L (34-104); Aspartate Amino Transferase 14 Units/L (13-39); BUN/Creatinine Ratio 20 (6-26); Bilirubin,Total 0.2 mg/dL (0.3-1.0); Blood Urea Nitrogen 16 mg/dL (6-20); Calcium 7.9 mg/dL (8.6-10.3); Carbon Dioxide 18 mEq/L (23-29); Chloride 114 mEq/L (98-107); Chol/HDL Ratio 2.7 (0-4.9); Cholesterol 125 mg/dL (< 200); Globulin 2.4 g/dL (2.4-3.5); Glucose 161 mg/dL (70-105); HDL Cholesterol 47 mg/dL (40-59); Magnesium 1.9 mg/dL (1.6-2.6); Osmolality,Calculated 293 (280-300); Potassium 3.9 mEq/L (3.5-5.1); Sodium 139 mEq/L (136-145); Total Protein 5.6 g/dL (6.4-8.9); Triglycerides 88 mg/dL (< 150); eGFR For African Americans > 60 (> 60); eGFR For Non-African Americans > 60 (> 60)
[2017-07-25 01:22] LABS: LDL Cholesterol,Calculated 60 mg/dL (0-99)
--- NOTE | 2017-07-25 04:59 | Electrocardiograph Report ---
[facility] Test Date: 2017-07-24 Pat Name: Jesus Mccormick Department: 102 Room: 2A Gender: F Blueprint Clerk: : 1970 Requested By: Leon Arreola Order Number: [id number] Reading MD: Beto Polo MD Measurements Intervals [place] Rate: 50 P: 26 KS: 181 QRS: 25 QRSD: 78 T: 21 QT: 428 QTc: 402 Interpretive Statements SINUS BRADYCARDIA Electronically Signed On 07-25-2017 4:57:56 EST by Beto Polo MD
[2017-07-25] MEDS: Aspirin 81 MG TAB.CHEW PO SCH (08:46)
[2017-07-25] MEDS: Cholecalciferol (D-3) 1,000 UNIT TABLET PO SCH (08:46)
[2017-07-25] MEDS: Celecoxib 200 MG CAPSULE PO SCH (08:46)
[2017-07-25] MEDS: Cyanocobalamin (B-12) 1,000 MCG TABLET PO SCH (08:46)
[2017-07-25] MEDS ORDERED: clonazePAM 1 MG TABLET PO PRN (08:59)
[2017-07-25] MEDS ORDERED: Cholecalciferol (D-3) 1,000 UNIT TABLET PO SCH (09:00)
[2017-07-25] MEDS: lamoTRIgine 100 MG TABLET PO SCH ×3 (11:19→22:03)
[2017-07-25] MEDS: Topiramate 100 MG TABLET PO SCH (11:19)
--- NOTE | 2017-07-25 15:26 | Internal Med Progress Note ---
Date of Encounter: 07/25/17 Time of Encounter: 14:15 - Assessment and plan (1) Bradycardia Current Visit: Yes Status: Acute Assessment and plan: Asymptomatic continue to hold all AV karl agents will closely monitor (2) Hypotension Current Visit: Yes Status: Acute Assessment and plan: Improved continue to hold antihypertensive agents and continue Midodrine tentative d/c in am if remains clinically stable Qualifiers: Hypotension type: unspecified hypotension type Qualified Code(s): I95.9 - Hypotension, unspecified (3) Bipolar 1 disorder Current Visit: No Status: Chronic Assessment and plan: continue home meds (4) DVT prophylaxis Current Visit: Yes Status: Acute Assessment and plan: heparin SQ - Subjective Interval history: Patient seen and examined at bedside. Resting in bed and denies any chest pain, sob, dizziness, lightheadedness. BP improved Bradycardia persists but pt asymptomatic - Constitutional Vitals: Temp Pulse Resp BP Pulse Ox 97.8 F 52 16 100/67 95 07/25/17 11:55 07/25/17 11:55 07/25/17 11:55 07/25/17 11:55 07/25/17 11:55 General appearance: Present: cooperative, A&O X 3, no acute distress, obese, answers questions appropriately - Head Head exam: Present: atraumatic, normocephalic - Eye Eye exam: Present: conjuntiva pink, sclera anicteric - Respiratory Respiratory exam: Present: CTAB. Absent: respiratory distress, wheezes - Cardiovascular Cardiovascular exam: Present: bradycardia, +S1, +S2 - GI/Abdominal GI/Abdominal exam: Present: normal bowel sounds, soft, no peritoneal signs. Absent: distended, tenderness - Extremities Exam Extremities exam: Present: warm, radial pulses palpable and symmetrical. Absent : calf tenderness, pedal edema - Neurological Exam Neurological exam: Present: alert, oriented X3 - Psychiatric Psychiatric exam: Present: normal affect, normal mood Internal Medicine: Result - Labs CBC & Chem 7: 07/25/17 00:47 07/25/17 00:47 Labs: Short CBC 07/25/17 Range/Units 00:47 WBC 6.3 (4.3-11.1) K/mcL Hgb 12.7 (11.5-15.4) g/dL Hct 38.7 (35.3-44.9) % Plt Count 184 (140-400) K/mcL Neutrophils # 3.2 (1.6-8.9) K/mcL BMP 07/25/17 00:47 Sodium 139 Potassium 3.9 Chloride 114 H Carbon Dioxide 18 L BUN 16 Creatinine 0.80 Glucose 161 H Calcium 7.9 L Cardiac Enzymes 07/24/17 07/25/17 Range/Units 20:06 00:47 Troponin I < 0.03 < 0.03 (< 0.04) ng/mL Liver Function 07/25/17 Range/Units 00:47 Total Bilirubin 0.2 L (0.3-1.0) mg/dL AST 14 (13-39) Units/L ALT 15 (7-52) Units/L Alkaline Phosphatase 81 (34-104) Units/L Albumin 3.2 L (3.5-5.7) g/dL - ABG Interpretation ABG results: PT/INR, D-dimer PT 11.9 Seconds (9.4-12.1) 07/24/17 10:24 Consult Discharge Plan - Plan Referrals: Lakesha Huerta MD [Primary Care Provider] - 07/30/17 12:00 pm ()
[2017-07-25] MEDS: *HR* Heparin 5,000 UNIT/ML VIAL SQ SCH (17:26)
[2017-07-26 04:54] LABS: Basophils % 0.8 %; Eosinophils # 0.2 K/mcL (0.0-0.6); Eosinophils % 2.9 %; Hematocrit 38.6 % (35.3-44.9); Hemoglobin 12.7 g/dL (11.5-15.4); Immature Granulocytes % 0.2 % (0-4); Lymphocytes # 2.4 K/mcL (0.6-4.6); Lymphocytes % 45.1 %; Mean Corpuscular HGB Conc 32.9 g/dL (31.6-35.5); Mean Corpuscular Hemoglobin 28.6 pg (28.0-33.3); Mean Corpuscular Volume 86.9 fL (83.0-100.0); Mean Platelet Volume 9.2 fL (9.4-12.4); Monocytes # 0.4 K/mcL (0.0-1.3); Monocytes % 6.7 %; Neutrophils # 2.3 K/mcL (1.6-8.9); Platelet Count 178 K/mcL (140-400); Red Blood Count 4.44 M/mcL (3.82-4.97); Red Cell Distribution Width 12.9 % (11.5-14.5); Segmented Neutrophils % 44.3 %
[2017-07-26 05:11] LABS: BUN/Creatinine Ratio 17 (6-26); Blood Urea Nitrogen 13 mg/dL (6-20); Calcium 8.1 mg/dL (8.6-10.3); Carbon Dioxide 22 mEq/L (23-29); Chloride 113 mEq/L (98-107); Glucose 96 mg/dL (70-105); Magnesium 1.9 mg/dL (1.6-2.6); Osmolality,Calculated 290 (280-300); Phosphorous 2.9 mg/dL (2.7-4.5); Sodium 140 mEq/L (136-145); eGFR For African Americans > 60 (> 60); eGFR For Non-African Americans > 60 (> 60)
[2017-07-26] MEDS: *HR* Heparin 5,000 UNIT/ML VIAL SQ SCH (06:37)
[2017-07-26 07:19] VITALS: BP 101/68
[2017-07-26] MEDS: Topiramate 100 MG TABLET PO SCH (09:49)
[2017-07-26] MEDS: lamoTRIgine 100 MG TABLET PO SCH (09:49)
[2017-07-26] MEDS: Cholecalciferol (D-3) 1,000 UNIT TABLET PO SCH (09:49)
[2017-07-26] MEDS: Cyanocobalamin (B-12) 1,000 MCG TABLET PO SCH (09:50)
[2017-07-26] MEDS: Aspirin 81 MG TAB.CHEW PO SCH (09:50)
[2017-07-26] MEDS: Celecoxib 200 MG CAPSULE PO SCH (09:50)
--- NOTE | 2017-07-26 10:08 | Discharge Summary ---
Date of Encounter: 07/26/17 Time of Encounter: 09:56 - Discharge Diagnosis (1) Bradycardia Priority: Primary Status: Acute (2) Hypotension Priority: Primary Status: Acute Qualifiers: Hypotension type: unspecified hypotension type Qualified Code(s): I95.9 - Hypotension, unspecified (3) Bipolar 1 disorder Priority: Secondary Status: Chronic (4) DVT prophylaxis Priority: Secondary Status: Acute - Discharge Medications Prescriptions: Midodrine [ProAmatine] 5 mg PO 0800,1200 #60 tablet Home Medications: Aspirin 81 mg PO DAILY 12/10/15 [History] Biotin [Marquis Biotin] 10,000 mcg PO DAILY 12/10/15 [History] Calcium Carbonate/Vitamin D3 [Calcium 600 + Vit D Softgel] 1 tab PO DAILY [History] Celecoxib [Celebrex] 200 mg PO DAILY 12/10/15 [History] Cholecalciferol (Vitamin D3) [Vitamin D3] 1,000 unit PO DAILY 12/10/15 [History] Cyanocobalamin (Vitamin B-12) [Vitamin B-12] 500 mcg PO DAILY 12/10/15 [History] Doxepin HCl 10 mg PO TID 12/10/15 [History] Multivitamin [Multivitamins] 1 tab PO DAILY 12/10/15 [History] Topiramate [Topamax] 150 mg PO DAILY 12/10/15 [History] clonazePAM [Clonazepam] 1 mg PO TID PRN 12/10/15 [History] lamoTRIgine [Lamotrigine] 200 mg PO TID 12/10/15 [History] Cholecalciferol (Vitamin D3) [Vitamin D3] 50,000 unit PO QWEEK 07/10/17 [History ] Meclizine [Antivert] 25 mg PO Q6HR PRN 7 Days #56 tablet 07/16/17 [Rx] HydrOXYzine 10 mg PO BID 07/24/17 [History] Midodrine [ProAmatine] 5 mg PO 0800,1200 #60 tablet 07/26/17 [Rx] Allergies/Adverse Reactions: 3 Allergy/AdvReac Type Severity Reaction Status Date / Time No Known Allergies Allergy Verified 07/24/17 10:08 Date of admission: 07/24/17 13:46 Primary care physician: Lakesha Huerta MD Discharging clinician: Mindi Ramos Anticipated date of discharge: 07/26/17 - Patient Status Disposition: Home, Self-Care Condition: Good Functional capacity at discharge: independent ambulation Overall status at discharge: patient is back to baseline - Discharge Instructions Follow Up With: Lakesha Huerta MD [Primary Care Provider] - 07/30/17 12:00 pm () Additional Instructions: Please follow up with your primary care physician within five days after your discharge from the hospital. Please follow up with cardiology within one to two weeks after your discharge from the hospital. Your home dose of Metoprolol has been discontinued Midodrine 5mg twice a day has been added, the prescription has been sent to [email or web address] on [facility]. Please closely monitor your blood pressure at home, hold all blood pressure lowering medications. Keep a daily log of your blood pressure readings and take this log with you to your primary care physician's office. Resume all other medications as prescribed by your primary care physician. - Diet and Activity Activity: resume usual activities as tolerated Diet: advance to your usual diet Hospital course: Ms. Mccormick is a 47 year old female with PMH of DVT, bipolar disorder who was admitted for evaluation of hypotension and bradycardia. 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 She received IV fluids and all BP lowering medications were placed on hold. Pt responded appropriately to IV fluids therapy. She remained bradycardic, with HR fluctuating between 50-60s. She however remained clinically asymptomatic throughout the course of her hospitalization. At this time her last BP is 124/83 and she is medically stable for discharge. She is to follow up with PCP after discharge. - Time Spent with Patient Total time spent providing and/or coordinating discharge services: Less than 30 minutes - Constitutional Vitals: Temp Pulse Resp BP Pulse Ox 98.0 F 58 17 101/68 96 07/26/17 07:06 07/26/17 07:06 07/26/17 07:06 07/26/17 07:06 07/26/17 07:06 General appearance: Present: cooperative, A&O X 3, no acute distress, obese, answers questions appropriately - Head Head exam: Present: atraumatic, normocephalic - Eye Eye exam: Present: conjuntiva pink, sclera anicteric - Respiratory Respiratory exam: Present: CTAB. Absent: accessory muscle use, rales, rhonchi, wheezes - Cardiovascular Cardiovascular exam: Present: bradycardia, +S1, +S2 - GI/Abdominal GI/Abdominal exam: Present: normal bowel sounds, soft, no peritoneal signs. Absent: distended, tenderness - Extremities Exam Extremities exam: Present: warm, radial pulses palpable and symmetrical. Absent : calf tenderness, cyanotic, pedal edema - Neurological Exam Neurological exam: Present: alert, oriented X3 - Psychiatric Psychiatric exam: Present: normal affect, normal mood
== END 2017-07-26 10:43 | disposition home or self-care (01) ==
LOC: EMEROO 09:49 → 2ANU 09:49
PROVIDERS: ADMIT Internal Medicine Cardiovascular Disease; ATTEND Internal Medicine

== ENCOUNTER 2021-09-30 06:31 | Observation (INO) ==
[2021-09-30] MEDS ORDERED: Isovue-370 500 ML BOTTLE IVP ONE ×3 (07:10→08:14)
[2021-09-30] MEDS ORDERED: 0.9 % Sodium Chloride 1,000 ML IVC ONE (07:32)
[2021-09-30 07:56] LABS: Hematocrit 44.8 % (35.3-44.9); Hemoglobin 14.8 g/dL (11.5-15.4); Mean Corpuscular Hemoglobin 28.6 pg (28.0-33.3); Mean Corpuscular Volume 86.5 fL (83.0-100.0); Platelet Count 184 K/mcL (140-400); Red Blood Count 5.18 M/mcL (3.82-4.97); Red Cell Distribution Width 13.3 % (11.5-14.5); White Blood Count 5.4 K/mcL (4.3-11.1)
[2021-09-30 08:18] LABS: BUN/Creatinine Ratio 15 (6-26); Blood Urea Nitrogen 15 mg/dL (6-20); Calcium 9.5 mg/dL (8.6-10.3); Carbon Dioxide 27 mEq/L (23-29); Chloride 104 mEq/L (98-107); Glucose 142 mg/dL (70-105); Osmolality,Calculated 293 (280-300); Potassium 4.6 mEq/L (3.5-5.1); Sodium 140 mEq/L (136-145); Troponin I < 0.03 ng/mL (< 0.04); eGFR For African Americans > 60 (> 60); eGFR For Non-African Americans > 60 (> 60)
[2021-09-30] MEDS ORDERED: Perflutren Lipid Microsphere 1.3 ML in 0.9 % Sodium Chloride 8.7 ML IVP PRN (09:27)
[2021-09-30 09:49] LABS: Bilirubin,Urine Negative (Negative); Blood,Urine Negative (Negative); Clarity,Urine Clear (Clear); Color,Urine Colorless (Yellow); Glucose,Urine (UA) Normal (Normal); Ketones,Urine Negative (Negative); Leukocyte Esterase,Urine Negative (Negative); Nitrite,Urine Negative (Negative); Protein,Urine Negative (Neg-Trace); Specific Gravity,Urine 1.025 (1.010-1.025); Urobilinogen,Urine Normal (Normal)
[2021-09-30 10:15] LABS: Amphetamine Screen,Urine Negative ng/mL (Cutoff=1000); Barbiturate Screen,Urine Negative ng/mL (Cutoff=200); Benzodiazepines Screen,Urine Negative ng/mL (Cutoff=200); Cannabinoid Screen,Urine Negative ng/mL (Cutoff = 50); Cocaine Screen,Urine Negative ng/mL (Cutoff= 300); Opiate Screen,Urine Negative ng/mL (Cutoff=300); Phencyclidine Screen,Urine Negative ng/mL (Cutoff=25)
[2021-09-30] MEDS: clonazePAM 1 MG TABLET PO SCH ×2 (16:20→20:45)
[2021-09-30] MEDS: Acyclovir 200 MG CAPSULE PO SCH ×2 (16:20→20:50)
[2021-09-30] MEDS: predniSONE 20 MG TABLET PO SCH (16:22)
[2021-09-30] MEDS ORDERED: lamoTRIgine 100 MG TABLET PO SCH (21:00)
[2021-09-30] MEDS ORDERED: Topiramate 100 MG TABLET PO SCH (21:00)
[2021-09-30] MEDS ORDERED: Metoprolol XL (24 HR) Succ 25 MG TAB.ER.24H PO SCH (21:00)
[2021-09-30] MEDS ORDERED: Aspirin Enteric Coated 81 MG Tablet PO SCH (21:00)
[2021-09-30] MEDS ORDERED: Letrozole 2.5 MG TABLET PO SCH (21:00)
[2021-09-30] MEDS ORDERED: Ondansetron 4 MG/2 ML VIAL IVP ONE (22:12)
[2021-09-30 22:42] VITALS: O2SAT 95
[2021-10-01 05:20] LABS: INR 1.1; Prothrombin Time 12.8 Seconds (9.4-12.1)
[2021-10-01 05:43] LABS: Alanine Aminotransferase 10 Units/L (7-52); Albumin 3.5 g/dL (3.5-5.7); Albumin/Globulin Ratio 1.3 (1.1-2.2); Alkaline Phosphatase 100 Units/L (34-104); Aspartate Amino Transferase 13 Units/L (13-39); BUN/Creatinine Ratio 16 (6-26); Bilirubin,Total 0.3 mg/dL (0.3-1.0); Blood Urea Nitrogen 13 mg/dL (6-20); Calcium 8.9 mg/dL (8.6-10.3); Carbon Dioxide 20 mEq/L (23-29); Chloride 111 mEq/L (98-107); Chol/HDL Ratio 3.2 (0-4.9); Cholesterol 143 mg/dL (< 200); Globulin 2.7 g/dL (2.4-3.5); Glucose 129 mg/dL (70-105); HDL Cholesterol 45 mg/dL (40-59); LDL Cholesterol,Calculated 64 mg/dL (< 100); Osmolality,Calculated 290 (280-300); Sodium 139 mEq/L (136-145); Total Protein 6.2 g/dL (6.4-8.9); Triglycerides 169 mg/dL (< 150); Troponin I < 0.03 ng/mL (< 0.04); eGFR For African Americans > 60 (> 60); eGFR For Non-African Americans > 60 (> 60)
[2021-10-01] MEDS ORDERED: *HR* Enoxaparin 40 MG/0.4 ML SYRINGE SQ SCH (06:00)
[2021-10-01 06:22] LABS: Estimated Average Glucose 128 mg/dl; Hemoglobin A1C 6.1 %
[2021-10-01 06:42] VITALS: BP 96/60; PULSE 70; TEMP 97.8
[2021-10-01] MEDS: predniSONE 20 MG TABLET PO SCH (08:17)
[2021-10-01] MEDS: Acyclovir 200 MG CAPSULE PO SCH (08:18)
[2021-10-01] MEDS: clonazePAM 1 MG TABLET PO SCH (08:19)
== END 2021-10-01 11:40 | disposition home or self-care (01) ==
LOC: 3BNU 06:31 → EMEROOARM 06:31 → SUATTDRO 09:43 → 3BNU 10:10
PROVIDERS: ADMIT Internal Medicine; ATTEND Registered Nurse